=== PATIENT | female | born 1930 | race Hispanic/Latino ===

== ENCOUNTER 2018-09-21 18:53 | Inpatient (IN) | payer MEDICARE, OTHER ==
[~2018-09-21] VITALS: Ht 142.2 cm; Wt 47.2 kg
[~2018-09-21 18:53] MED LIST: ALENDRONATE SOD70 MG PO; ASPIR 8181 MG PO; CALCIUM PO; DULOXETINE PO; FERROUS SULFATE PO; GABAPENTIN PO; HYDRALAZINE PO; ISOSORBIDE PO; LEVOTHYROXINE PO; LOSARTAN PO; LOSARTAN-HCTZ1 EACH PO; OXYBUTYNIN PO; PANTOPRAZOLE PO; PRAVASTATIN PO; VITAMIN B-12 PO
[2018-09-21] MEDS ORDERED: ONDANSETRON HCL INJ 2MG/ML 2ML 2 MG/ML VIAL IV STA (19:16)
--- NOTE | 2018-09-21 21:40 | Diagnostic Imaging Report ---
EXAM: CT Abdomen and Pelvis WITH contrast INDICATION: Abdominal pain. ^[id number] ^2039 COMPARISON: None. TECHNIQUE: Abdomen and pelvis were scanned utilizing a multidetector helical scanner from the lung base to the pubic symphysis after administration of IV contrast. Coronal and sagittal reformations were obtained. Dose modulation, iterative reconstruction, and/or weight based adjustment of the mA/kV was utilized to reduce the radiation dose to as low as reasonably achievable. Routine protocol was performed. Scan was performed when during portal venous phase. IV CONTRAST: 100 mL of Isovue 370 ORAL CONTRAST: Water COMPLICATIONS: None RADIATION DOSE: Total DLP: 942.68 mGy*cm Estimated effective dose: (DLP x 0.015 x size factor) mSv CTDIvol has been reviewed. It is below the limits set by the Radiation Protocol Committee (RPC). FINDINGS: LINES and TUBES: Left subcutaneous lower back spine stimulator device in place LOWER THORAX: Mild bibasilar atelectasis. HEPATOBILIARY: No focal hepatic lesions. Common bile duct dilatation, likely due to reservoir effect. GALLBLADDER: Surgically absent. SPLEEN: No splenomegaly. Punctate calcified granuloma. PANCREAS: No focal masses or ductal dilatation. ADRENALS: No adrenal nodules KIDNEYS/URETERS: Kidneys enhance symmetrically. No hydronephrosis. No renal mass. Subcentimeter hypodensities are too small to characterize. No stones. GI TRACT: Multiple air-fluid levels throughout the abdomen as well as dilated air and fluid-filled small bowel loops. There are also some collapsed loops in the mid and lower abdomen. Colonic diverticulosis. Fluid within distal esophagus, suggestive of gastroesophageal reflux. PELVIC ORGANS/BLADDER: Unremarkable. LYMPH NODES: No lymphadenopathy. VESSELS: Markedly tortuous abdominal aorta with mild atherosclerotic disease. PERITONEUM / RETROPERITONEUM: No free air. Trace ascites. BONES: Generalized demineralization. Thoracolumbar scoliosis with multilevel advanced degenerative changes. SOFT TISSUES: Small fat-containing ventral hernias. IMPRESSION: 1. Findings concerning for at least partial small bowel obstruction. Signed by: Dr. Lowell Scott MD on 09/21/2018 9:36 PM
[2018-09-21] MEDS ORDERED: MORPHINE SULFATE 2 MG/ML SYR 1ML IV STA (21:43)
[2018-09-21] MEDS ORDERED: SODIUM CHLORIDE 0.9% 1000ML 1,000 ML IV SCH (21:47)
--- OUTSIDE RECORDS SUMMARY | 2018-09-21 22:34 | XMS REPORT ---
Author Author [facility] Address Unknown Phone Unavailable Care Team Providers Care Bogger Operator Name Role Phone Lorene OLEA Unavailable Unavailable Problems This patient has no known problems. Allergies, Adverse Reactions, Alerts This patient has no known allergies or adverse reactions. Medications This patient has no known medications. Results Test Description Test Time Test Comments Text Results Atomic Results Result Comments CT ABD/PEL WITH CONTRAST-HOPD 2018-09-21 21:21:00 [place] [address] Patient Name: AIRAM RANDLE MR #: [id number] : 1930 Age/Sex: 88/F Req #: [id number] Adm Physician: Ordered by: GERONIMO OLEA MD Report #: [id number] Location: [facility] Room/Bed: Procedure: [id number] HOPD/CT ABD/PEL WITH CONTRAST-HOPD Exam Date: 09/21/18 Exam Time: 2039 REPORT STATUS: Signed EXAM: CT Abdomen and Pelvis WITH contrast INDICATION: Abdominal pain. [id number] COMPARISON: None. TECHNIQUE: Abdomen and pelvis were scanned utilizing a multidetector helical scanner from the lung base to the pubic symphysis after administration of IV contrast. Coronal and sagittal reformations were obtained. Dose modulation, iterative reconstruction, and/or weight based adjustment of the mA/kV was utilized to reduce the radiation dose to as low as reasonably achievable. Routine protocol was performed. Scan was performed when during portal venous phase. IV CONTRAST: 100 mL of Isovue 370 ORAL CONTRAST: Water COMPLICATIONS: None RADIATION DOSE: Total DLP: 942.68 mGy*cm Estimated effective dose: (DLP x 0.015 x size factor) mSv CTDIvol has been reviewed. It is below the limits set by the Radiation Protocol Committee (RPC). FINDINGS: LINES and TUBES: Left subcutaneous lower back spine stimulator device in place LOWER THORAX: Mild bibasilar atelectasis. HEPATOBILIARY: No focal hepatic lesions. Common bile duct dilatation, likely due to reservoir effect. GALLBLADDER: Surgically absent. SPLEEN: No splenomegaly. Punctate calcified granuloma. PANCREAS: No focal masses or ductal dilatation. ADRENALS: No adrenal nodules KIDNEYS/URETERS: Kidneys enhance symmetrically. No hydronephr osis. No renal mass. Subcentimeter hypodensities are too small to characterize. No stones. GI TRACT: Multiple air-fluid levels throughout the abdomen as well as dilated air and fluid-filled small bowel loops. There are also some collapsed loops in the mid and lower abdomen. Colonic diverticulosis. Fluid within distal esophagus, suggestive of gastroesophageal reflux. PELVIC ORGANS/BLADDER: Unremarkable. LYMPH NODES: No lymphadenopathy. VESSELS: Markedly tortuous abdominal aorta with mild atherosclerotic disease. PERITONEUM / RETROPERITONEUM: No free air. Trace ascites. BONES: Generalized demineralization. Thoracolumbar scoliosis with multilevel advanced degenerative changes. SOFT TISSUES: Small fat- containing ventral hernias. IMPRESSION: 1. Findings concerning for at least partial small bowel obstruction. Signed by: Dr. Lowell Dupont MD on 09/21/2018 9:36 PM Dictated By: LOWELL DUPONT MD 35 Transcribed By: INGRID on 09/21/182135 COPY TO: GERONIMO OLEA MD
--- NOTE | 2018-09-21 23:01 | NUR ---
Attempted to insert NGT twice into right and left nostril and was met with much resistance possibly in turbinate areas, unable to advance, pt tolerated attempts with moderate discomfort.
[2018-09-21 23:30] VITALS: BP 168/60
[2018-09-22] VITALS (10 sets, daily range): BP systolic 145–179; BP diastolic 60–75
--- NOTE | 2018-09-22 | NUR ---
Attempted to insert NGT x 1, unable to advance due to resistance. Attempted x 2 at FRER per report from Jony HORN. Will notify in AM that NGT was unable to be obtained. Addendum: 09/22/18 at 0244 by Kasandra Cabral RN Pt states she has had sinus surgery in the past, does not remember exact procedure.
--- NOTE | 2018-09-22 01:42 | NUR ---
Left message on Dr. Shine's voicemail regarding orders for pain/nausea medicine per pt request.
[2018-09-22] MEDS: KETOROLAC TROMETHAMINE 30 MG/ML VIAL IV PRN (06:35)
[2018-09-22 06:46] LABS: BASOPHILS % 0.3 % (0.0-1.0); EOSINOPHILS % 0.1 % (0.0-6.0); HEMATOCRIT 31.2 % (34.2-44.1); HEMOGLOBIN 10.2 g/dL (12.0-16.0); LYMPHOCYTES % 13.2 % (18.0-39.1); MEAN CORPUSCULAR HEMOGLOBIN 28.3 pg (28-32); MEAN CORPUSCULAR HGB CONC 32.7 g/dL (31-35); MEAN CORPUSCULAR VOLUME 86.7 fL (81-99); MONOCYTES # (AUTO) 0.5 (0.2-0.8); MONOCYTES % 6.4 % (4.4-11.3); NEUTROPHILS # (AUTO) 5.8 (2.1-6.9); NEUTROPHILS % 79.7 % (38.7-80.0); PLATELET COUNT 184 x10e3/uL (140-360); RED CELL DISTRIBUTION WIDTH 13.8 % (11.7-14.4)
[2018-09-22 07:00] LABS: ANION GAP 11.5 mmol/L (8-16); BLOOD UREA NITROGEN 10 mg/dL (7-26); BUN/CREATININE RATIO 19 (6-25); CARBON DIOXIDE 26 mmol/L (22-29); CHLORIDE 98 mmol/L (98-107); CREATININE, SERUM 0.54 mg/dL (0.57-1.11); EST GLOMERULAR FILTRATION RATE > 60 ML/MIN (60-); GLUCOSE 113 mg/dL (74-118); POTASSIUM 3.5 mmol/L (3.5-5.1); SODIUM 132 mmol/L (136-145)
--- NOTE | 2018-09-22 08:26 | Diagnostic Imaging Report ---
Exam: KUB- 1 view Clinical History: Abdominal distension. Comparison: CT Abdomen/Pelvis 09/21/2018. Findings: There are mildly dilated small bowel loops, measuring up to 3.2 cm. Some air is seen within a decompressed colon. Surgical clips project over the left abdomen. There is a spinal stimulator device projecting over the left lower quadrant. No acute osseous abnormality. S-shaped scoliosis of the thoracolumbar spine with associated extensive degenerative changes. Impression: Findings of persistent partial small bowel obstruction. Signed by: Dr. Yogesh Parmar MD on 09/22/2018 8:22 AM
[2018-09-22] MEDS ORDERED: BISACODYL 10 MG SUPP PR NR (09:15)
[2018-09-22] MEDS: METRONIDAZOLE 500MG/NS 100ML 100 ML IV SCH ×2 (13:10→21:19)
[2018-09-22] MEDS: CEFTRIAXONE SOD 1 GM/NS 50 ML 50 ML IV SCH (13:10)
[2018-09-22] MEDS: PANTOPRAZOLE 40 MG 10ML VIAL IV SCH (13:10)
[2018-09-22] MEDS: SOD CHL 0.45%/POT CHL 20MEQ 1,000 ML IV SCH (13:10)
[2018-09-22] MEDS: ENOXAPARIN 30 MG/0.3 ML SYR SC SCH (13:11)
[2018-09-22] MEDS: MORPHINE SULFATE INJ 4 MG/ML INJ 1ML IV PRN ×2 (13:38→16:30)
[2018-09-22] MEDS: ONDANSETRON HCL INJ 2MG/ML 2ML 2 MG/ML VIAL IV PRN (13:38)
--- NOTE | 2018-09-22 18:52 | NUR ---
montilla placed with urine output >300ml. ngt placed as pt increased abdominal distention, nausea and pain. patient feeling much better after ngt placed and contents 250ml out with suction.
--- NOTE | 2018-09-22 19:21 | NUR ---
Received change of shift report from AM nurse. Rounds completed.
--- NOTE | 2018-09-22 20:09 | History and Physical ---
PRIMARY CARE PHYSICIAN: Rosalba De La Garza. CHIEF COMPLAINT: Small bowel obstruction. HISTORY OF PRESENT ILLNESS: The patient is an 88-year-old female, who came in with small bowel obstruction. NG tube was unable to be placed because she has had bilateral sinus surgery previously. The patient's abdomen is distended. She is having pain. Currently, the patient is on bowel rest. Repeated KUB this morning does show that she has a partial small bowel obstruction. PAST SURGICAL HISTORY: A small section of small bowel resection years ago. Ventral abdominal hernia repair. Complete hysterectomy. Cholecystectomy and appendectomy. SOCIAL HISTORY: Patient lives with her family with very well support. No smoking. No recreational drugs. ALLERGIES: NO KNOWN ALLERGIES. HOME MEDICATIONS: Patient is on alendronate, aspirin, losartan, HCTZ, calcium, fluoxetine, ferrous sulfate, gabapentin, isosorbide, levothyroxine, oxybutynin, Protonix, pravastatin. PHYSICAL EXAMINATION: VITAL SIGNS: Temperature is 98, blood pressure 151/62, pulse rate 70, respirations 18. GENERAL: The patient is not in acute distress. She is awake. HEENT: Normocephalic, atraumatic. Anicteric. NECK: Supple grossly. PULMONARY: Diminished breath sounds. CARDIOVASCULAR: S1 and S2. Regular rate and rhythm. ABDOMEN: Distended. Diminished bowel sounds. Tenderness. No guarding. EXTREMITIES: No cyanosis or edema. NEUROLOGIC: No focal deficit. LABORATORY DATA: Sodium is 132, potassium 3.5, chloride 98, bicarb 26, BUN 10, creatinine 0.5, glucose 113. WBC is 7.3, hemoglobin 10.2, hematocrit 31.2, and platelets are 184. CT scan and KUB showed small bowel obstruction partially. IMPRESSION: 1. Partial small bowel obstruction. 2. Electrolyte disorder. 3. Hypertensive urgency. PLAN: Adjust patient medication. IV fluid with potassium replacement. Nothing by mouth for now. Repeat KUB in the morning. We will treat the patient symptomatically. PT, OT. Ambulate. MD JACQUE Morfin/SHRUTHI /[id number]
--- NOTE | 2018-09-22 20:28 | Consultation ---
DATE OF CONSULTATION: September 22, 2018 CHIEF COMPLAINT: Abdominal pain, vomiting. HISTORY OF PRESENT ILLNESS: The patient is an 88-year-old female with 1-day history of periumbilical abdominal pain and repeat vomiting without hematemesis. She denies fever, chills, or diarrhea. She has passed some gas early today. PAST MEDICAL HISTORY: Significant for hypertension, hypothyroidism. PAST SURGICAL HISTORY: Positive for umbilical hernia repair, cholecystectomy, small bowel resection from bowel obstruction. ALLERGIES: SHE HAS NO DRUG ALLERGIES. SOCIAL HABIT: She does not smoke or drink alcohol. REVIEW OF SYSTEMS: No chest pain, shortness of breath, or cough. PHYSICAL EXAMINATION VITAL SIGNS: Stable, afebrile. GENERAL: She is awake, alert, in mild discomfort. HEENT: Sclerae are nonicteric. NECK: Supple. LUNGS: Clear. HEART: Regular rate and rhythm. ABDOMEN: Moderately distended with some guarding in the epigastric supraumbilical region without rebound. EXTREMITIES: Without cyanosis or edema. LABS: White cell count 7, hemoglobin of 10. Creatinine of 0.5. CT scan showed partial small bowel obstruction. ASSESSMENT: Intestinal obstruction, likely secondary to adhesion. PLAN: NG tube has been placed. We will follow patient with abdominal x-ray and serial exam. Job#: [id number] RIKA
--- NOTE | 2018-09-23 | NUR ---
Patient repositioned in bed q 2 hours and prn.
[2018-09-23] MEDS: SOD CHL 0.45%/POT CHL 20MEQ 1,000 ML IV SCH ×2 (03:25→07:30)
[2018-09-23 03:48] VITALS: BP 165/86
[2018-09-23] MEDS: ONDANSETRON HCL INJ 2MG/ML 2ML 2 MG/ML VIAL IV PRN ×2 (05:00→06:20)
--- NOTE | 2018-09-23 05:00 | NUR ---
Patient c/o abd pain. Given pain meds as ordered by MD. Patient also received nausea meds also.
[2018-09-23] MEDS: MORPHINE SULFATE INJ 4 MG/ML INJ 1ML IV PRN (05:30)
[2018-09-23 05:34] LABS: RED CELL DISTRIBUTION WIDTH 13.6 % (11.7-14.4)
[2018-09-23 05:59] LABS: ANION GAP 12.2 mmol/L (8-16); BLOOD UREA NITROGEN 9 mg/dL (7-26); BUN/CREATININE RATIO 18 (6-25); CALCIUM 8.4 mg/dL (8.4-10.2); CARBON DIOXIDE 23 mmol/L (22-29); CHLORIDE 95 mmol/L (98-107); CREATININE, SERUM 0.51 mg/dL (0.57-1.11); EST GLOMERULAR FILTRATION RATE > 60 ML/MIN (60-); GLUCOSE 100 mg/dL (74-118); POTASSIUM 3.2 mmol/L (3.5-5.1); SODIUM 127 mmol/L (136-145)
[2018-09-23] MEDS: METRONIDAZOLE 500MG/NS 100ML 100 ML IV SCH ×3 (06:00→21:24)
--- NOTE | 2018-09-23 06:26 | Diagnostic Imaging Report ---
EXAM: Abdomen 1 View INDICATION: ^SBO ^[id number] ^0545 COMPARISON: KUB dated 09/22/2018 FINDINGS: Tip of a tube overlying right upper abdomen, could represent a nasogastric tube. Decreased gaseous distention of bowel loops when compared to prior x-ray. No definite signs of pneumoperitoneum. Stable left posterior back spine stimulator device. Advanced multilevel degenerative changes of spine. Surgical clips overlying left lower abdomen and upper pelvis. IMPRESSION: Decreased gaseous distention of bowel loops when compared to prior x-ray, suggestive of improved obstruction. Signed by: Dr. Lowell Scott MD on 09/23/2018 6:22 AM
[2018-09-23 06:28] LABS: FOLATE 15.3 ng/mL (7.0-15.4)
[2018-09-23 06:35] LABS: MAGNESIUM 1.8 MG/DL (1.3-2.1); PHOSPHORUS 2.7 MG/DL (2.3-4.7)
[2018-09-23 06:50] LABS: BASOPHILS % 0.1 % (0.0-1.0); HEMATOCRIT 34.9 % (34.2-44.1); LYMPHOCYTES # (AUTO) 0.6 (1.0-3.2); LYMPHOCYTES % 8.3 % (18.0-39.1); MEAN CORPUSCULAR HEMOGLOBIN 28.9 pg (28-32); MEAN CORPUSCULAR HGB CONC 33.8 g/dL (31-35); MEAN CORPUSCULAR VOLUME 85.5 fL (81-99); MONOCYTES # (AUTO) 0.5 (0.2-0.8); NEUTROPHILS # (AUTO) 6.3 (2.1-6.9); NEUTROPHILS % 84.5 % (38.7-80.0); PLATELET COUNT 217 x10e3/uL (140-360); RED BLOOD COUNT 4.08 x10e6/uL (3.6-5.1)
[2018-09-23 06:54] LABS: THYROID STIMULATING HORMONE 3.819 uIU/mL (0.350-4.940)
[2018-09-23 06:59] LABS: HEMOGLOBIN 11.8 g/dL (12.0-16.0)
[2018-09-23 07:30] VITALS: BP 166/80
[2018-09-23] MEDS: PANTOPRAZOLE 40 MG 10ML VIAL IV SCH (07:34)
[2018-09-23 07:43] VITALS: BP 166/80
--- NOTE | 2018-09-23 10:04 | NUR ---
EDUCATED ABOUT IMM, SIGNED, FILED IN CHART, WITH COPY LEFT WITH FAMILY AT BEDSIDE.
[2018-09-23] MEDS: CEFTRIAXONE SOD 1 GM/NS 50 ML 50 ML IV SCH (11:21)
[2018-09-23 12:00] VITALS: BP 178/76
[2018-09-23] MEDS ORDERED: CYANOCOBALAMIN INJ 1,000 MCG/ML VIAL IM ONE (14:30)
[2018-09-23] MEDS: KCL 40MEQ/0.9% SOD CHL 1,000 ML IV SCH (14:57)
[2018-09-23] MEDS: CLONIDINE HCL 0.2 MG/24 HR 1 EA PATCH TOP SCH (14:57)
[2018-09-23 16:00] VITALS: BP 156/72
[2018-09-23] MEDS: ENOXAPARIN 30 MG/0.3 ML SYR SC SCH (16:36)
--- NOTE | 2018-09-23 19:00 | NUR ---
RECEIVED REPORT FROM DAY NURSE. PATIENT IS RESTING COMFORTABLY IN BED. BED IS IN LOWEST POSITION AND CALL LIGHT IS WITHIN REACH. WILL CONTINUE TO MONITOR PATIENT.
[2018-09-23 20:00] VITALS: BP 186/81
--- NOTE | 2018-09-23 20:00 | NUR ---
PATIENT'S BLOOD PRESSURE IS ELEVATED AT 186/81. PATIENT WILL BE MEDICATED WITH PRN HIGH BLOOD PRESSURE MEDICINE. WILL CONTINUE TO MONITOR PATIENT.
[2018-09-23] MEDS: HYDRALAZINE HCL 20 MG/ML VIAL IV PRN (21:24)
--- NOTE | 2018-09-23 22:48 | NUR ---
PATIENT'S BLOOD PRESSURE HAS BEEN REASSESSED AND FOUND TO BE 151/74. PATIENT IS RESTING COMFORTABLY IN BED. WILL CONTINUE TO MONITOR PATIENT.
--- NOTE | 2018-09-23 22:49 | NUR ---
PATIENT HAS BEEN REPOSITIONED ONTO HER BACK TO HELP PREVENT SKIN BREAKDOWN.
[2018-09-24] VITALS: BP 159/71
--- NOTE | 2018-09-24 | NUR ---
patient wants to be left on the left side for now. patient states she will let contract technical writer know when she wants to be turned. will continue to monitor patient.
[2018-09-24 04:00] VITALS: BP 147/61
[2018-09-24 05:14] LABS: BASOPHILS % 0.5 % (0.0-1.0); EOSINOPHILS % 0.3 % (0.0-6.0); HEMATOCRIT 36.1 % (34.2-44.1); HEMOGLOBIN 12.1 g/dL (12.0-16.0); LYMPHOCYTES % 17.5 % (18.0-39.1); MEAN CORPUSCULAR HEMOGLOBIN 29.4 pg (28-32); MEAN CORPUSCULAR HGB CONC 33.5 g/dL (31-35); MEAN CORPUSCULAR VOLUME 87.6 fL (81-99); MONOCYTES # (AUTO) 0.6 (0.2-0.8); MONOCYTES % 10.8 % (4.4-11.3); NEUTROPHILS # (AUTO) 4.2 (2.1-6.9); NEUTROPHILS % 70.7 % (38.7-80.0); PLATELET COUNT 256 x10e3/uL (140-360); RED BLOOD COUNT 4.12 x10e6/uL (3.6-5.1)
[2018-09-24] MEDS: KCL 40MEQ/0.9% SOD CHL 1,000 ML IV SCH ×3 (05:22→21:57)
[2018-09-24] MEDS: METRONIDAZOLE 500MG/NS 100ML 100 ML IV SCH ×3 (05:22→21:57)
[2018-09-24 05:42] LABS: ANION GAP 15.9 mmol/L (8-16); BLOOD UREA NITROGEN 14 mg/dL (7-26); BUN/CREATININE RATIO 26 (6-25); CALCIUM 8.1 mg/dL (8.4-10.2); CARBON DIOXIDE 18 mmol/L (22-29); CHLORIDE 104 mmol/L (98-107); CREATININE, SERUM 0.53 mg/dL (0.57-1.11); EST GLOMERULAR FILTRATION RATE > 60 ML/MIN (60-); POTASSIUM 3.9 mmol/L (3.5-5.1); SODIUM 134 mmol/L (136-145)
[2018-09-24 05:52] LABS: GLUCOSE 58 mg/dL (74-118)
[2018-09-24] MEDS ORDERED: DEXTROSE 50% SYRINGE 50 ML IV STA (05:59)
--- NOTE | 2018-09-24 06:00 | NUR ---
received critical lab from lab this morning. patients sugar is 58. MD notified, received new orders. Will continue to monitor patient.
[2018-09-24 06:03] LABS: MAGNESIUM 1.8 MG/DL (1.3-2.1); PHOSPHORUS 2.2 MG/DL (2.3-4.7)
[2018-09-24] MEDS ORDERED: DEXTROSE 50% SYRINGE 50 ML IV SCH (06:15)
--- NOTE | 2018-09-24 06:32 | NUR ---
per patient request, patient has been checked to see if she is dirty and needs a diaper change. patient's diaper is clean, and dry. A change is not required at this moment.
--- NOTE | 2018-09-24 06:53 | NUR ---
report given to day nurse. patient is resting comfortably in bed. bed is in lowest position and call johnson is within reach.
[2018-09-24 08:00] VITALS: BP 159/70
[2018-09-24] MEDS: PANTOPRAZOLE 40 MG 10ML VIAL IV SCH (08:07)
[2018-09-24 08:34] VITALS: BP 159/70
--- NOTE | 2018-09-24 09:42 | Diagnostic Imaging Report ---
Exam: Abdominal film Clinical History: Obstruction Comparison: 09/23/2018 DISCUSSION: Enteric tube and sacral stimulator device are unchanged in appearance/position. Multiple left lower abdominal-pelvic surgical clips. Degree of gaseous distention is unchanged relative to 09/23/2018. No mass effect or organomegaly. 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 IMPRESSION: Stable mild gaseous distention of multiple bowel loops relative to 09/23/2018. Signed by: Dr. Nigel De La Rosa M.D. on 09/24/2018 9:38 AM
--- NOTE | 2018-09-24 10:45 | NUR ---
PT SITTING IN CHAIR FAMILY AT BEDSIDE
[2018-09-24 12:00] VITALS: BP 144/86
--- NOTE | 2018-09-24 12:03 | NUR ---
CHUY CALLED DR. MICHELLE FOR DISCHARGE PLANNING ASSISTANCE. PATIENT WITH DECREASED MOBILITY, INCREASED WEAKNESS AND DECREASED BALANCED. PHYSICAL THERAPY RECOMMENDED [facility]. STATES IF PATIENT IS OKAY WITH SNF WE CAN BEGIN AUTH. IF PATIENT DECLINES THEN SET UP HOME WITH HOME [facility] SN & PT EVAL AND TREAT SERVICES. ROSS VERA NOTIFIED.
[2018-09-24] MEDS: CEFTRIAXONE SOD 1 GM/NS 50 ML 50 ML IV SCH (12:20)
--- NOTE | 2018-09-24 15:42 | NUR ---
RECEIVED ORDER FOR SNF EVAL. MET W THE PT AT THE BEDSIDE. STATES HER SISTER WENT TO THE MEDICAL RESORT ON YESTERDAY AND WOULD LIKE TO GO THERE. VERIFIED W PT'S INSURANCE MED [facility] WAS NOT IN NETWORK. PROVIDED PT NEW LIST OF SNF'S; [facility] AND [facility], ALL IN NETWORK. CALL WAS MADE TO THE PT'S DTR; PIERRE, @ [phone]. PIERRE STATES [facility] IS [address] [place] [address] THE PT AGREED TO [facility]. REFERRAL WAS SENT TO [facility] @ OFF: [phone] / FAX: [phone]. VERIFIED W REPRODUCTIVE SURGEON THE DON; ERIK WILL REVIEW THE CLINICAL. Addendum: 09/24/18 at 1548 by Arabella Lin CM CHOICE LETTER WAS PROVIDED AND SIGNED BY PT. COPY TO PT AND COPY TO CHART. CHUY LEFT BUSINESS CARD AT THE BEDSIDE.
--- NOTE | 2018-09-24 16:00 | NUR ---
PT TRANSFERRED TO ROOM 213.
--- NOTE | 2018-09-24 16:15 | NUR ---
pt arrived to floor resp even and unlabored at this time no distress noted, pt oriented to room and call light.
[2018-09-24] MEDS: ENOXAPARIN 30 MG/0.3 ML SYR SC SCH (17:09)
--- NOTE | 2018-09-24 19:25 | NUR ---
report given to oncoming nurse.
--- NOTE | 2018-09-24 19:30 | NUR ---
PATIENT RECEIVED. PATIENT IS RESTING IN BED, AAOX3. RESP EVEN AND UNLABORED. NO ACUTE DISTRESS NOTED. LEFT NARE NG TUBE NOTED, CONNECT TO LIWS NOTED. IV FLUID INFUSING. LILLY IN PLACE. FAMILY AT BED SIDE. CALL LIGHT WITHIN REACH. BED LOW/LOCKED. CONTINUE TO MONITOR CLOSELY
[2018-09-24 20:00] VITALS: BP 177/74
[2018-09-24] MEDS: KETOROLAC TROMETHAMINE 30 MG/ML VIAL IV PRN (22:45)
[2018-09-24] MEDS: HYDRALAZINE HCL 20 MG/ML VIAL IV PRN (22:45)
[2018-09-25] VITALS (7 sets, daily range): BP systolic 127–157; BP diastolic 58–76
[2018-09-25] MEDS: METRONIDAZOLE 500MG/NS 100ML 100 ML IV SCH ×3 (05:00→21:31)
--- NOTE | 2018-09-25 07:30 | NUR ---
RCD PT BED PT IS ALERT AND ORIENTED PT RESTING ON BED NO SIGNS OF ANY DISTRESS NOTED PT ON NG TUBE WITH LOW INTERMITTENT SUCTION IV PATENT AND RUNNING 100ML FAMILY AT BED SIDE BED LOW AND LOCKED CALL LIGHT IN REACH
[2018-09-25] MEDS: PANTOPRAZOLE 40 MG 10ML VIAL IV SCH (09:00)
--- NOTE | 2018-09-25 09:10 | NUR ---
CALL RECEIVED FROM [facility]. STATES THEY ARE OUT OF NETWORK. INFO GIVEN TO HAI TEE. SHE WILL SPEAK W THE PT AND DTR.
[2018-09-25] MEDS: KCL 40MEQ/0.9% SOD CHL 1,000 ML IV SCH ×2 (10:00→16:17)
[2018-09-25] MEDS: CEFTRIAXONE SOD 1 GM/NS 50 ML 50 ML IV SCH (11:30)
--- NOTE | 2018-09-25 15:47 | NUR ---
SPOKE WITH PATIENT AND DAUGHTER GAVE CHOICES IN NETWORK, THEY CHOOSE [facility], FAXED CLINICALS AND FILED CHOICE LETTER IN CHART.
[2018-09-25] MEDS: ENOXAPARIN 30 MG/0.3 ML SYR SC SCH (16:17)
--- NOTE | 2018-09-25 19:00 | NUR ---
PT RESTING ON BED BED SIDE REPORT GIVEN TO ONCOMING NURSE
--- NOTE | 2018-09-25 19:44 | Diagnostic Imaging Report ---
EXAM: Abdomen 1 Views INDICATION: ^SMALL BOWEL OBSTRUCTION ^[id number] ^1746 ^Y COMPARISON: None FINDINGS: Lines/tubes: Partially visualized NG/T2 with tip overlying the distal gastric body. Sacral neurostimulator device in the left pelvis with lead overlying the sacrum slightly toward the left. Large amount of of stool in the colon. No dilated loops of small bowel. No renal calculi. No abnormal soft tissue masses. Advanced degenerative changes in the lumbar spine and pelvis. IMPRESSION: Stable bowel gas pattern without dilatation or air fluid levels. Signed by: Dr. Doreen Everett M.D. on 09/25/2018 7:40 PM
[2018-09-25] MEDS: KETOROLAC TROMETHAMINE 30 MG/ML VIAL IV PRN (21:31)
[2018-09-26] VITALS (8 sets, daily range): BP systolic 130–165; BP diastolic 53–74
[2018-09-26] MEDS: KCL 40MEQ/0.9% SOD CHL 1,000 ML IV SCH ×3 (02:30→22:30)
[2018-09-26] MEDS: METRONIDAZOLE 500MG/NS 100ML 100 ML IV SCH ×3 (06:07→21:57)
--- NOTE | 2018-09-26 07:00 | NUR ---
RCD PT BED PT IS ALERT AND ORIENTED PT RESTING ON BED NO SIGNS OF ANY DISTRESS NOTED PT ON NG TUBE WITH LOW INTERMITTENT SUCTION IV PATENT AND RUNNING 100ML BED LOW AND LOCKED CALL LIGHT IN REACH
--- NOTE | 2018-09-26 07:09 | NUR ---
REPORT GIVEN TO ONCOMING NURSE,WALKING ROUNDS MADE.PT RESTING IN BED WITH NO S/S OF DISTRESS.
--- NOTE | 2018-09-26 08:30 | NUR ---
ENEMA GIVEN THE PT IS NOT ABLE TO HOLD THE FLUID PAGED TO DR STEWART TO NOTIFY THAT TALKED CATHYLINE THE OR NURSE SHE SAID DR STEWART IS ON SURGERY SHE TALKED HIM HE SAID HE COMING TO SEE THE PT AFTER SURGERY
[2018-09-26] MEDS: PANTOPRAZOLE 40 MG 10ML VIAL IV SCH (09:00)
[2018-09-26] MEDS: CEFTRIAXONE SOD 1 GM/NS 50 ML 50 ML IV SCH (11:30)
[2018-09-26] MEDS: ENOXAPARIN 30 MG/0.3 ML SYR SC SCH (16:49)
--- NOTE | 2018-09-26 18:12 | NUR ---
Nutrition Intervention Note RD Recommendation(s) for Physician: -Rec advancing to GI soft diet as medically appropriate -Rec Ensure Clear BID when advance to clear liquid -If PO is not feasible within the next 48hr, consider PN Plan of Care: RD following, monitoring for tolerance and adequacy Nutrition reason for involvement: NPO x [address] Assessment 09/26- 88yo F, who was admitted for abdominal pain. Pt was discussed during AM rounds. No surgical intervention for SBO. NGT to suction. IVF and IV abx present. Abd X-ray showed large amount of stool in colon; enema has been ordered. RD visited pt for NPO x 5 days. Pt appeared comfortable with no complains of nausea or vomiting. No BM after enema was given. Pt reported hx of chronic constipation. No recent weight loss OFFICER LIEUTENANT. Will continue to monitor and follow. Principal Problems/Diagnoses: SBO PMH: hypertension, hypothyroidism GI: LBM 09/22, abdomen soft, round, non-tender Skin: no pressure wound noted Labs: (09/26) Na 134 L, creatinine 0.53 L, Glucose 58 L, Ca 8.1 L Meds: Lovenox, KCl, protonix Ht: 54in Wt: 111.38lb BMI: 26.9kg/m2 IBW: 70lbs Malnutrition Evaluation (09/26) The patient does not meet criteria for a specified degree of malnutrition at this time. Will re-evaluate at follow-up as appropriate. Energy intake: <50% of estimated energy requirements for >5 days Weight loss: Unknown Fat loss: None Muscle loss: None Supporting Evidence: Fluid accumulation: unable to evaluate Functional Status: no changes Nutrition Prescription (Diet Order): NPO Estimated Nutritional Needs: Calories: 1000 - 1250kcal(20-25kcal/kg/d) Weight used: actual BW Protein: 50 -75g (1-1.5g/kg/d) Weight used: actual BW Diet Adequacy: Not meeting calorie needs, Not meeting protein needs Diet Education Needs Assessment: Diet education indicated, but patient not appropriate for education at this time. Nutrition Care Level: mod Nutrition Diagnosis: Inadequate oral intake related to SBO as evidenced by NPO x 5 days. Goal: Patient will meet 75-100% of estimated needs by follow up Progress: Not Progressing Interventions: Texture-modified diet, Commercial beverage Monitoring/Evaluation: Total energy intake, Total protein intake, Modified diet, Liquid supplement, Weight change Signed: Mamta Huerta, MS, RD, LD
--- NOTE | 2018-09-26 19:21 | NUR ---
PT RESTING ON BED BED SIDE REPORT GIVEN TO ONCOMING NURSE
[2018-09-26] MEDS: KETOROLAC TROMETHAMINE 30 MG/ML VIAL IV PRN (20:31)
[2018-09-27] VITALS (8 sets, daily range): BP systolic 138–188; BP diastolic 60–78
[2018-09-27] MEDS: METRONIDAZOLE 500MG/NS 100ML 100 ML IV SCH ×4 (06:05→21:42)
--- NOTE | 2018-09-27 07:05 | NUR ---
Received patient mid fowlers position, side rails upx2, call light within reach, bed alarm on. Resting with eyes closed. Arousable to verbal stimuli. Respirations even and unlabored. Left nare NG tube on intermittent suction draining green drainage. Will continue to monitor.
--- NOTE | 2018-09-27 07:18 | NUR ---
REPORT GIVEN TO ONCOMING NURSE,WALKING ROUNDS MADE.PT RESTING IN BED WITH NO S/S OF DISTRESS.
[2018-09-27] MEDS: PANTOPRAZOLE 40 MG 10ML VIAL IV SCH (08:37)
[2018-09-27] MEDS: CEFTRIAXONE SOD 1 GM/NS 50 ML 50 ML IV SCH (10:30)
[2018-09-27] MEDS: ONDANSETRON HCL INJ 2MG/ML 2ML 2 MG/ML VIAL IV PRN (10:30)
[2018-09-27] MEDS: KCL 40MEQ/0.9% SOD CHL 1,000 ML IV SCH (12:16)
[2018-09-27] MEDS: DEXTROSE 5%/0.45% SOD CHL 1,000 ML IV SCH (15:22)
[2018-09-27] MEDS: ENOXAPARIN 30 MG/0.3 ML SYR SC SCH (15:22)
--- NOTE | 2018-09-27 15:32 | Diagnostic Imaging Report ---
EXAM: ABDOMEN-1VIEW (KUB) DATE: 09/27/2018 2:25 PM INDICATION: Small bowel obstruction COMPARISON: KUB, 09/25/2018 FINDINGS: Supine view of the abdomen shows mild distention of a bowel loop in the lower midline abdomen. There is a relative paucity of gas in the colon. NG tube extends to the gastric antrum. Electronic generator with apparent InterStim catheter extends into the left pelvis. Again noted is extensive degenerative change in the spine. There are surgical clips in the left lower abdomen. IMPRESSION: 1. Mild distention of small bowel loops with air, with relative paucity of gas in the colon. Findings suggest ileus or low-grade partial small bowel obstruction, slightly increased compared to previous exam. 2. Stable position of NG tube extending to the gastric antrum. Signed by: Dr. Cyrus Toussaint M.D. on 09/27/2018 3:28 PM
--- NOTE | 2018-09-27 15:40 | NUR ---
Paged to notify of consult and KUB results. Per poultice machine operator distribution analyst.
--- NOTE | 2018-09-27 16:00 | NUR ---
aware of KUB results. No new orders. States " will be seeing patient today"
[2018-09-27 16:38] LABS: BASOPHILS % 0.5 % (0.0-1.0); EOSINOPHILS # (AUTO) 0.1 (0.0-0.4); EOSINOPHILS % 1.6 % (0.0-6.0); HEMATOCRIT 32.6 % (34.2-44.1); HEMOGLOBIN 10.1 g/dL (12.0-16.0); LYMPHOCYTES # (AUTO) 0.5 (1.0-3.2); MEAN CORPUSCULAR HEMOGLOBIN 29.1 pg (28-32); MEAN CORPUSCULAR VOLUME 93.9 fL (81-99); MONOCYTES # (AUTO) 0.3 (0.2-0.8); MONOCYTES % 7.7 % (4.4-11.3); NEUTROPHILS # (AUTO) 3.4 (2.1-6.9); NEUTROPHILS % 78.5 % (38.7-80.0); PLATELET COUNT 224 x10e3/uL (140-360); RED BLOOD COUNT 3.47 x10e6/uL (3.6-5.1); RED CELL DISTRIBUTION WIDTH 14.6 % (11.7-14.4)
--- NOTE | 2018-09-27 16:45 | NUR ---
Visit made by the Spiritual Care Department Pastoral Visitor, Eduin Becker. PV provided pastoral presence, hospitality, prayer, and supportive listening. Pastoral Visitor informed pt/family of the scope of Mathematical Engineer Services and availability. KAREN HAQUE Carpet Installation Specialist Spiritual Care Department O: [phone] Pager: [phone] ([phone] number calling from)
[2018-09-27 16:57] LABS: MAGNESIUM 1.4 MG/DL (1.3-2.1); PHOSPHORUS 2.3 MG/DL (2.3-4.7)
[2018-09-27 17:14] LABS: BLOOD UREA NITROGEN 7 mg/dL (7-26); BUN/CREATININE RATIO 13 (6-25); CALCIUM 8.4 mg/dL (8.4-10.2); CARBON DIOXIDE 10 mmol/L (22-29); CHLORIDE 115 mmol/L (98-107); CREATININE, SERUM 0.54 mg/dL (0.57-1.11); EST GLOMERULAR FILTRATION RATE > 60 ML/MIN (60-); SODIUM 140 mmol/L (136-145)
[2018-09-27 17:15] LABS: GLUCOSE 43 mg/dL (74-118)
--- NOTE | 2018-09-27 17:40 | NUR ---
Lab called critical for Glucose of 43. Finger stick done FSBG 61. notified of levels. See orders
[2018-09-27] MEDS ORDERED: DEXTROSE 50% SYRINGE 50 ML IV PRN (17:45)
--- NOTE | 2018-09-27 18:21 | NUR ---
FSBG 199.
--- NOTE | 2018-09-27 18:40 | NUR ---
Resting in bed, bed alarm on. No s/s of acute distress noted. Report to be given to oncoming nurse.
--- NOTE | 2018-09-27 19:42 | NUR ---
Patient received lying in bed. AAO x 3. No c/o pain. No signs of respiratory distress. Bed locked and in lowest position. Bed rails up x 2. Patient instructed to call for assistance when needed. Call light within reach.
[2018-09-27] MEDS: HYDRALAZINE HCL 20 MG/ML VIAL IV PRN (20:21)
[2018-09-28] MEDS: DEXTROSE 5%/0.45% SOD CHL 1,000 ML IV SCH ×3 (03:00→21:20)
[2018-09-28 06:04] LABS: BASOPHILS % 0.4 % (0.0-1.0); EOSINOPHILS # (AUTO) 0.3 (0.0-0.4); EOSINOPHILS % 5.4 % (0.0-6.0); HEMATOCRIT 29.5 % (34.2-44.1); HEMOGLOBIN 9.8 g/dL (12.0-16.0); LYMPHOCYTES # (AUTO) 0.7 (1.0-3.2); LYMPHOCYTES % 14.1 % (18.0-39.1); MEAN CORPUSCULAR HEMOGLOBIN 29.2 pg (28-32); MEAN CORPUSCULAR HGB CONC 33.2 g/dL (31-35); MEAN CORPUSCULAR VOLUME 87.8 fL (81-99); MONOCYTES # (AUTO) 0.4 (0.2-0.8); MONOCYTES % 8.7 % (4.4-11.3); NEUTROPHILS # (AUTO) 3.5 (2.1-6.9); PLATELET COUNT 218 x10e3/uL (140-360); RED BLOOD COUNT 3.36 x10e6/uL (3.6-5.1); RED CELL DISTRIBUTION WIDTH 14.2 % (11.7-14.4)
[2018-09-28 06:23] VITALS: BP 172/81
[2018-09-28 06:23] LABS: ANION GAP 10.3 mmol/L (8-16); BLOOD UREA NITROGEN < 5 mg/dL (7-26); CALCIUM 8.3 mg/dL (8.4-10.2); CARBON DIOXIDE 16 mmol/L (22-29); CHLORIDE 111 mmol/L (98-107); CREATININE, SERUM 0.49 mg/dL (0.57-1.11); EST GLOMERULAR FILTRATION RATE > 60 ML/MIN (60-); GLUCOSE 113 mg/dL (74-118); POTASSIUM 3.3 mmol/L (3.5-5.1); SODIUM 134 mmol/L (136-145)
[2018-09-28 06:25] LABS: BUN/CREATININE RATIO 10 (6-25)
[2018-09-28] MEDS: METRONIDAZOLE 500MG/NS 100ML 100 ML IV SCH (06:37)
[2018-09-28] MEDS: HYDRALAZINE HCL 20 MG/ML VIAL IV PRN (06:48)
--- NOTE | 2018-09-28 07:10 | NUR ---
pt asleep resp even and unlabored at this time no distress noted, pt arousal to name, family member at bedside, call light in reach.
[2018-09-28 07:30] VITALS: BP 140/68
[2018-09-28 08:00] VITALS: BP 140/68
[2018-09-28] MEDS: PANTOPRAZOLE 40 MG 10ML VIAL IV SCH (09:49)
[2018-09-28] MEDS ORDERED: MAGNESIUM SULFATE 2GM/50ML IV ONE (10:30)
[2018-09-28] MEDS ORDERED: BISACODYL 10 MG SUPP PR ONE (11:00)
[2018-09-28] MEDS ORDERED: MAGNESIUM SULFATE 2GM/50ML 50 ML IV ONE (11:00)
[2018-09-28] MEDS: METOCLOPRAMIDE HCL 10 MG/2ML VIAL IV SCH ×3 (11:30→21:20)
[2018-09-28 12:00] VITALS: BP 121/70
[2018-09-28] MEDS: CEFTRIAXONE SOD 1 GM/NS 50 ML 50 ML IV SCH (13:08)
[2018-09-28] MEDS: POTASSIUM CHLORIDE 10MEQ EA PO SCH ×3 (13:15→21:20)
[2018-09-28 16:00] VITALS: BP 123/73
[2018-09-28] MEDS: ENOXAPARIN 30 MG/0.3 ML SYR SC SCH (17:54)
--- NOTE | 2018-09-28 19:20 | NUR ---
Patient visited in room during nursing rounds. Patient alert and oriented x3. Daughter at bedside. Patient ambulatory with walker and standby assist prn. On IVF (d51/2NS at 100ml/hr). Patient on clear liquid diet. No distress or discomfort noted at this time. Call johnson within reach. Will monitor closely.
--- NOTE | 2018-09-28 19:24 | NUR ---
REPORT GIVEN TO ONCOMING NURSE, FOR CONTINUED CARE.
[2018-09-28 20:00] VITALS: BP 152/73
[2018-09-28] MEDS: ONDANSETRON HCL INJ 2MG/ML 2ML 2 MG/ML VIAL IV PRN (22:30)
[2018-09-29] VITALS (7 sets, daily range): BP systolic 131–156; BP diastolic 60–75
--- NOTE | 2018-09-29 00:19 | NUR ---
Attempted to call Dr. Shine to report patient having successive vomiting episodes. No answer and nurse (Kel) left voice message. Awaiting on MD call back. Will attempt to call Dr. Glynn next.
--- NOTE | 2018-09-29 00:32 | NUR ---
Spoke with Dr. Glynn over the phone regarding patient's 4 episodes of vomiting dark green vomitus. MD ordered to change diet to NPO, stat Abd x-ray and to insert NG tube if patient continues to vomit and not feel better.
--- NOTE | 2018-09-29 01:55 | Consultation ---
DATE OF CONSULTATION: 09/28/2018 Consultation Note CONSULTING PHYSICIAN: Micheal Shine MD REASON FOR CONSULTATION: Small bowel obstruction. HISTORY OF PRESENT ILLNESS: An 88-year-old very pleasant white female, who got admitted with acute onset of nausea, vomiting, and lower abdominal discomfort. In the Emergency Room, she was found to have small bowel obstruction. The patient has been seen by Surgical Service. She was treated conservatively with NG tube to ryp-aa-wousboqfdpzp wall suction. Today, she has significantly improved. NG has been removed. She is passing flatus. Therefore, she has been allowed to be on clear liquid diet. She is tolerating clear liquid diet well without any nausea or vomiting. GI is being consulted for further assistance in the medical management. On further question, the patient stated that she has had one episode of small bowel obstruction 7-8 years ago that required surgery. At that time, she has had a portion of small bowel resected. PAST MEDICAL HISTORY: Hypertension and hypothyroidism. PAST SURGICAL HISTORY: Umbilical hernia repair, cholecystectomy, and small bowel resection, secondary to bowel obstruction. FAMILY HISTORY: Noncontributory given her advanced age. SOCIAL HISTORY: No smoking, alcohol, or any illicit drug use. REVIEW OF SYSTEMS: A 12-point system reviewed, symptomatology is limited as per HPI. MEDICATIONS: Home medications include alendronate, aspirin, losartan/hydrochlorothiazide, calcium with vitamin D, duloxetine, ferrous sulphate, gabapentin, levothyroxine, oxybutynin, pantoprazole, pravastatin, and vitamin B12. Inpatient medications reviewed as per MAR. PHYSICAL EXAMINATION: VITAL SIGNS: Temperature 96.7, pulse 92-100, respirations 20, blood pressure 121/70, and oxygen saturation 97% on room air. GENERAL: Elderly with kyphosis. In no acute distress. HEENT: Oral mucosa is moist. Anicteric sclerae. CVS: S1 and S2, regular. LUNGS: Bilaterally grossly clear. ABDOMEN: Soft, without any rebound, rigidity, or guarding today. Bowel sounds present. EXTREMITIES: Warm. No leg edema. LABORATORY DATA: WBC 4.96, hemoglobin 9.8, hematocrit 29.5, MCV 87.8, and platelet count 218. Sodium 134, potassium 3.3, chloride 111, bicarb 16, BUN 5, creatinine 0.49, and glucose 113. Abdominal x-ray done yesterday showed: 1. Mild distention of the small bowel loop with air with a relative paucity of gas in the colon. Findings suggest ileus or low-grade partial bowel obstruction, slightly increased compared to previous exam. 2. Stable position of the NG tube. IMPRESSION: Small bowel obstruction, likely due to underlying adhesions. This was conservatively treated. Now, she is being allowed to clear liquid. PLAN: Continue present medical management as per Surgery. The patient also told me that she has a chronic constipation. Once bowel obstruction is resolved, then she should be put on daily bowel regimen. I have also given her my business card in presence of all other family members. She can follow up with me in the office in a week or two after discharge. I thank Dr. Shine for allowing me to participate in the care of this patient. James Cristina MD SA/SHRUTHI /[id number]
--- NOTE | 2018-09-29 02:03 | Diagnostic Imaging Report ---
Abdomen/KUB INDICATION: ^Small bowel obstruction ^[id number] ^0100 COMPARISON: Abdomen x-ray 09/27/2018. FINDINGS: Portable, supine image obtained at 0106 hours. Medical Devices: Enteric tube has been removed. Stimulator and surgical clips in the left pelvis are stable Bowel: Distended small bowel loop in the lower abdomen to the left of midline measures 3.7 cm in diameter (previously, 3.4 cm). No pneumatosis. No significant amount of air in the large bowel. There is stool in the right colon. Free air: None Calcifications: 2 new calcifications in the right mid abdomen may correspond to medication Organomegaly: None Lung bases: Clear Bones: Stable degenerative changes superimposed on scoliosis. IMPRESSION: Removal of enteric tube. Increasing distention of the small bowel suggestive of progressing partial small bowel obstruction. Signed by: Dr. Roxanne Rosa MD on 09/29/2018 2:00 AM
--- NOTE | 2018-09-29 02:28 | NUR ---
Notified Dr. Glynn of Abd x-ray results (i.e. increasing distention of the small bowel suggestive of progressing partial small bowel obstruction). Informed Dr. Glynn that patient is comfortably sleeping with HOB elevated and has not vomited for a while now. stated just to keep pt NPO and monitor patient.
--- NOTE | 2018-09-29 04:45 | NUR ---
Patient had 2 bouts of vomiting (200ml) and keeps spitting. Patient informed plan is to insert NG tube since vomiting episodes keep happening and as per Dr. Glynn's order.
--- NOTE | 2018-09-29 04:55 | NUR ---
NG tube 14 gambian inserted on left nare. Patient tolerated insertion fine. Awaiting on stat KUB to be done to verify NG tube placement.
[2018-09-29] MEDS: DEXTROSE 5%/0.45% SOD CHL 1,000 ML IV SCH (05:40)
[2018-09-29] MEDS: ONDANSETRON HCL INJ 2MG/ML 2ML 2 MG/ML VIAL IV PRN (05:40)
[2018-09-29 05:46] LABS: PHOSPHORUS 1.5 MG/DL (2.3-4.7)
--- NOTE | 2018-09-29 05:51 | Diagnostic Imaging Report ---
Abdomen/KUB INDICATION: ^to verify NG tube placement ^[id number] ^0529 COMPARISON: Abdomen x-ray 0106 hours. FINDINGS: Portable, supine image obtained at 0519 hours. Medical Devices: Enteric tube is in the left upper quadrant. It cannot be conclusively localized to the stomach. There is a linear radiodensity in the medial left lung base that may represent the tip of the tube. Stimulator and surgical clips in the left pelvis are stable. Bowel: Distended loop of small bowel the left hemiabdomen measures 3.5 cm. No pneumatosis. Little air in the large bowel. Free air: None Calcifications: None over the renal shadows or along the expected course of the ureters. Organomegaly: None Bones: Stable IMPRESSION: Enteric tube tip location is poorly visualized and may be within the lower chest. Recommend repeat imaging with inclusion of the lower chest. No change in small bowel distention suggestive of partial small bowel obstruction. Signed by: Dr. Roxanne Rosa MD on 09/29/2018 5:48 AM
[2018-09-29 06:11] LABS: ANION GAP 10.7 mmol/L (8-16); BLOOD UREA NITROGEN < 5 mg/dL (7-26); CALCIUM 8.9 mg/dL (8.4-10.2); CARBON DIOXIDE 19 mmol/L (22-29); CHLORIDE 105 mmol/L (98-107); CREATININE, SERUM 0.49 mg/dL (0.57-1.11); EST GLOMERULAR FILTRATION RATE > 60 ML/MIN (60-); GLUCOSE 174 mg/dL (74-118); POTASSIUM 3.7 mmol/L (3.5-5.1); SODIUM 131 mmol/L (136-145)
[2018-09-29 06:12] LABS: BUN/CREATININE RATIO 10 (6-25)
--- NOTE | 2018-09-29 06:34 | NUR ---
NOTIFIED DR MICHELLE LOW Mg-1.0, NEW ORDER RECEIVED
[2018-09-29] MEDS ORDERED: MAGNESIUM SULFATE 2GM/50ML 50 ML IV ONE ×2 (06:45→14:00)
[2018-09-29] MEDS: PANTOPRAZOLE 40 MG 10ML VIAL IV SCH (07:35)
[2018-09-29] MEDS: METOCLOPRAMIDE HCL 10 MG/2ML VIAL IV SCH (07:35)
--- NOTE | 2018-09-29 07:52 | NUR ---
aware of KUB results. States "connect patient now to low intermittent suction and repeat KUB"
--- NOTE | 2018-09-29 08:27 | Diagnostic Imaging Report ---
Exam: Abdominal film Clinical History: Small bowel obstruction Comparison: None. DISCUSSION: No air-filled loops of dilated bowel. Enteric tube with tip overlying left upper quadrant. Bladder stimulator. Degenerative disc disease of the lumbar spine. Clips left of midline. IMPRESSION: No dilated air-filled loops of bowel Signed by: Dr. George Garrido M.D. on 09/29/2018 8:24 AM
--- NOTE | 2018-09-29 09:36 | NUR ---
called for clarification on IV magnesium. States "gives second dose of magnesium at noon as ordered"
--- NOTE | 2018-09-29 09:37 | NUR ---
aware of consult. States "We will see patient tomorrow"
--- NOTE | 2018-09-29 09:46 | NUR ---
aware of 0800 KUB results. No new orders
[2018-09-29] MEDS ORDERED: CYANOCOBALAMIN INJ 1,000 MCG/ML VIAL IM ONE (10:00)
[2018-09-29] MEDS ORDERED: POTASSIUM PHOSPHATE 20 MM in SODIUM CHLORIDE 0.9% 250ML 250 ML IV ONE (10:00)
[2018-09-29] MEDS: CEFTRIAXONE SOD 1 GM/NS 50 ML 50 ML IV SCH (10:20)
--- NOTE | 2018-09-29 16:32 | Diagnostic Imaging Report ---
Examination: Single AP view of the chest. COMPARISON: None. INDICATION: PICC line DISCUSSION: Lines/tubes: Left PICC line with tip overlying the SVC. Enteric tube with tip left upper quadrant. Lungs: The lungs are well inflated and clear. No pneumonia or pulmonary edema. Pleura: No pleural effusion or pneumothorax. Heart and mediastinum: The heart and the mediastinum are unremarkable. Bones and soft tissues: No acute bony abnormalities. IMPRESSION: 1. Left PICC line with tip overlying the SVC Signed by: Dr. George Garrido M.D. on 09/29/2018 4:29 PM
[2018-09-29] MEDS: D5NS/KCL 20MEQ 1,000 ML IV SCH (16:50)
--- NOTE | 2018-09-29 18:45 | NUR ---
Resting in bed, daughter at bedside. No s/s of acute distress noted. Report to be given to oncoming nurse.
--- NOTE | 2018-09-29 19:30 | NUR ---
Patient visited in room during nursing rounds. Patient alert and oriented x3. Patient appear sleepy but easily arousable. NG tube in place to left nare and connected to low wall intermittent suction. Daughter at bedside. PICC in place and pt aware will be started on TPN tonight. Condition stable. Call johnson within reach. Will continue to monitor.
[2018-09-29] MEDS: CENTRAL TPN FORMULA 1 BAG IV SCH (20:37)
[2018-09-30] VITALS (8 sets, daily range): BP systolic 150–186; BP diastolic 67–86
--- NOTE | 2018-09-30 00:50 | Progress Note ---
DATE: 09/29/2018 SUBJECTIVE: The patient developed nausea and vomiting after eating food yesterday. She barely had a small bowel movement. She is not passing any flatus. REVIEW OF SYSTEMS: GENERAL: No fever or chills. CVS: No chest pain or palpitations. RESPIRATORY: No cough or expectoration. MEDICATIONS: Potassium chloride, ceftriaxone, pantoprazole, Zofran, hydralazine, clonidine, total parenteral nutrition. PHYSICAL EXAMINATION: VITAL SIGNS: Temperature 98.6, pulse 73, respirations 20, blood pressure 135/66, oxygen saturation 96% on room air. GENERAL: Not in any acute distress, elderly, frail. NG in place, draining bile. HEENT: Anicteric sclerae. ABDOMEN: Soft. Mild lower quadrant tenderness. No rebound, rigidity, or guarding. Bowel sounds hyperactive. LABORATORY DATA: WBC 4.96, hemoglobin 9.8 down from 10.1, hematocrit 29.5, MCV 87.8, platelet count 218. Sodium 131, potassium 3.7, chloride 105, bicarb 19, BUN 5, creatinine 0.49, glucose 174. Abdominal x-ray showed NG in place, bladder stimulator. Degenerative disk disease of the lumbar spine. No air filled loop of dilated bowels. IMPRESSION: Although abdominal x-ray is not showing any evidence of obstructive bowel gas pattern, clinically the patient seems to have recurrent small bowel obstruction. PLAN: Agree to continue NG with tou-ng-hzyhnjlkkppu wall suction. TPN. Monitor clinically. Surgery is also following the patient. James Cristina MD SA/SHRUTHI /[id number]
[2018-09-30] MEDS: D5NS/KCL 20MEQ 1,000 ML IV SCH ×2 (02:39→12:00)
[2018-09-30 05:33] LABS: ANION GAP 8.7 mmol/L (8-16); BLOOD UREA NITROGEN < 5 mg/dL (7-26); CALCIUM 7.5 mg/dL (8.4-10.2); CARBON DIOXIDE 21 mmol/L (22-29); CHLORIDE 109 mmol/L (98-107); CREATININE, SERUM 0.46 mg/dL (0.57-1.11); EST GLOMERULAR FILTRATION RATE > 60 ML/MIN (60-); GLUCOSE 197 mg/dL (74-118); POTASSIUM 3.7 mmol/L (3.5-5.1); SODIUM 135 mmol/L (136-145)
[2018-09-30 05:34] LABS: BUN/CREATININE RATIO 11 (6-25)
--- NOTE | 2018-09-30 07:00 | NUR ---
BEDSIDE SHIFT REPORT ON PT FROM NIGHT RN. PT DENIES NEEDS AT THIS TIME.
[2018-09-30] MEDS: PANTOPRAZOLE 40 MG 10ML VIAL IV SCH (09:13)
--- NOTE | 2018-09-30 09:34 | NUR ---
IMM letter delivered and explained to pt. She verbalized understanding. Signed copy placed in chart. Copy to pt.
[2018-09-30] MEDS: CEFTRIAXONE SOD 1 GM/NS 50 ML 50 ML IV SCH (12:57)
[2018-09-30] MEDS: CLONIDINE HCL 0.2 MG/24 HR 1 EA PATCH TOP SCH (14:45)
--- NOTE | 2018-09-30 17:10 | NUR ---
Follow-up Note RD Recommendation(s) for Physician: - Continue current standard PN @50mL/hr with additional of 25g lipids (M,W,F), provides 948kcal, 180g dextrose, 60g protein, and 1200mL fluids. meeting 95% of est calorie needs and 100% protein needs - Continue with TPN per MD until diet is advanced and intake is >50%. - Check BMP, Phos, Mag daily; Prealbumin, LFT and TG levels weekly Plan of Care: RD following, monitoring for tolerance and adequacy, TPN Nutrition reason for involvement: TPN, follow up RD Assessment 09/30- Pt was discussed during AM rounds. Pt had nausea and vomiting after started on clear liquid diet over the weekend. TPN was started. Possible surgical intervention for recurrent SBO. NGT to wall suction; still draining. Visited pt in the room. Daughter was aware of the purpose of TPN. No GI complains noted today. Will continue to monitor and follow. 09/26- 88yo F, who was admitted for abdominal pain. Pt was discussed during AM rounds. No surgical intervention for SBO. NGT to suction. IVF and IV abx present. Abd X-ray showed large amount of stool in colon; enema has been ordered. RD visited pt for NPO x 5 days. Pt appeared comfortable with no complains of nausea or vomiting. No BM after enema was given. Pt reported hx of chronic constipation. 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 Will continue to monitor and follow. Principal Problems/Diagnoses: SBO PMH: hypertension, hypothyroidism GI: abdomen soft, round, flatus present Skin: no pressure wound noted Labs: (09/30) Na 135 L, BUN <5 L, Creatinine 0.46 L, Glucose 140 180 H, Ca 7.5 L, Phos 2.0 L (09/26) Na 134 L, creatinine 0.53 L, Glucose 58 L, Ca 8.1 L Meds: protonix Ht: 54in Wt: 111.38lb; 108.56lb BMI: 26.9kg/m2 IBW: 70lbs Malnutrition Evaluation (09/26) The patient does not meet criteria for a specified degree of malnutrition at this time. Will re-evaluate at follow-up as appropriate. Energy intake: <50% of estimated energy requirements for >5 days Weight loss: Unknown Fat loss: None Muscle loss: None Supporting Evidence: Fluid accumulation: unable to evaluate Functional Status: no changes Nutrition Prescription (Diet Order): NPO Estimated Nutritional Needs: Calories: 1000 - 1250kcal (20-25kcal/kg/d) Weight used: actual BW Protein: 50 -75g (1-1.5g/kg/d) Weight used: actual BW Diet Adequacy: meeting calorie needs, meeting protein needs Diet Education Needs Assessment: Diet education indicated, but patient not appropriate for education at this time. Nutrition Care Level: high (TPN) Nutrition Diagnosis: Inadequate oral intake related to SBO as evidenced by pt requiring PN as main source of nutrients. Goal: Patient will meet 75-100% of estimated needs by follow up Progress: Goal met. Interventions: Composition, Rate, Route Monitoring/Evaluation: Total energy intake, Total protein intake, Weight change, labs, Formula/Solution Signed: Mamta Huerta MS, RD, LD
[2018-09-30] MEDS: CENTRAL TPN FORMULA 1 BAG IV SCH (20:00)
--- NOTE | 2018-09-30 20:00 | NUR ---
PT IN BED, FAMILY AT BEDSIDE, NG TUBE TO LEFT NARE TO LIWS DRAINGING GREEN BILE, IV INTACT, PICC LINE INTACT WITH TPN RUNNING, CONSENT FOR SURGERY DONE, PT IS NPO, CALL LIGHT IN REACH, NO DISTRESS NOTED, VS STABLE
[2018-10-01] VITALS (9 sets, daily range): BP systolic 141–183; BP diastolic 65–84
--- NOTE | 2018-10-01 | NUR ---
PT AWAKE FOR VS, VS STABLE, NO DISTRESS NOTED
--- NOTE | 2018-10-01 00:27 | Consultation ---
DATE OF CONSULTATION: REASON FOR CONSULTATION: Electrolyte management. HISTORY OF PRESENT ILLNESS: The patient is an 88-year-old female with past medical history of hypertension and hypothyroidism, who was admitted with acute onset of nausea, vomiting, and lower abdominal pain. The patient was found to have a small bowel obstruction. The patient was seen by Surgery and suggested to manage conservatively. The patient had an NG tube pain and was put into low-intermittent suction. The patient eventually did not tolerate any diet and started on TPN. The patient has been having electrolyte imbalance and needed to be replaced IV. Currently, on TPN. PAST MEDICAL HISTORY: Hypertension, hypothyroidism. PAST SURGICAL HISTORY: Umbilical hernia repair, cholecystectomy, small bowel resection secondary to bowel obstruction. FAMILY HISTORY: No history of any kidney disease. SOCIAL HISTORY: No history of smoking, alcohol, or intravenous drug abuse. ALLERGIES: NO KNOWN DRUG ALLERGIES. MEDICATIONS: Currently, the patient is on clonidine patch, ceftriaxone, pantoprazole, hydralazine IV, and Zofran p.r.n. REVIEW OF SYSTEMS: GENERAL: No fatigue, no fever, no chills. HEENT: No headache. No blurry vision. NECK: No dysphagia. CARDIOVASCULAR: No chest pain. No PND. No orthopnea. RESPIRATORY: No shortness of breath . No cough or hemoptysis. GI: No nausea, vomiting, diarrhea, or constipation. No abdominal pain. No hematemesis. No melena. MUSCULOSKELETAL: No ankle swelling. NEUROLOGIC: No numbness or tingling. PHYSICAL EXAMINATION: VITAL SIGNS: Blood pressure 158/74, pulse of 83, respirations 16, temperature 96.9, 99% on room air. GENERAL: The patient is awake and alert, not in apparent distress. HEENT: PERRLA. Extraocular movements intact. NECK: No JVD. HEART: S1 and S2. LUNGS: CLEAR TO AUSCULTATE ABDOMEN: Soft. Bowel sound sluggish. EXTREMITIES: No edema. NEUROLOGIC: No focal deficits. LABORATORY DATA: Sodium 135, potassium 3.7, chloride 99, CO2 of 21, BUN is less than 5, creatinine 0.46, glucose 197, calcium 7.5. Magnesium 2.0, phosphorus is 2.0. CT abdomen and pelvis on admission showed partial small bowel obstruction. ASSESSMENT AND PLAN: 1. Small bowel obstruction. Currently on TPN. Monitor electrolytes and adjust the TPN as needed. Surgery and GI following. 2. Hypertension, reasonably controlled on clonidine patch. Continue with the p.r.n. medications. 3. Discussed with the daughter at bedside. I want to thank, Dr. Shine, for the consult. MD ADRY Irizarry/SHRUTHI /[id number]
--- NOTE | 2018-10-01 06:43 | NUR ---
pt in bed, ng tube draining, tpn infusing, call light in reach, family at bedside, pt is npo, vs stable, no distress noted
--- NOTE | 2018-10-01 07:00 | NUR ---
BEDSIDE SHIFT REPORT ON PT FROM NIGHT RN. PT DENIES NEEDS AT THIS TIME.
[2018-10-01] MEDS: PANTOPRAZOLE 40 MG 10ML VIAL IV SCH (09:48)
[2018-10-01] MEDS ORDERED: DIATRIZOATE MEGL/DIATRIZOA SOD 30 ML BTL PO ONE (11:17)
[2018-10-01] MEDS: CEFTRIAXONE SOD 1 GM/NS 50 ML 50 ML IV SCH (12:48)
[2018-10-01] MEDS ORDERED: BUPIVACAINE 0.25% 30ML SDV INJ ONE (15:49)
--- NOTE | 2018-10-01 16:04 | NUR ---
CASE MANAGEMENT INITIAL ASSESSMENT Delivery Man to bedside to discuss plan of care with patient/family. CM/SW role and care transitions discussed. Anticipated discharge plan discussed along with duration of care. CM/SW discussed patients right to make decisions in care. CM work hours given. Patient lives: PATIENT LIVES IN [address] STORY HOME WITH DAUGHTER IN [facility] Admit/Transfer: ED Hospital/ER visits since last admit: NO POA/Emergency contact: PATIENT DAUGHTER- PIERRE RANDLE [phone] Current/Previous Home Health: NO PCP/Follow-up Care: DR. MOHSEN FREGOSO Current/Previous DME: WALKER, WHEELCHAIR, CANE Medications (referring to index hospitalization or the first time you were in the hospital) a. Were changes made in your medications when you were in the hospital on [date of index hospitalization]? Yes No Not sure Explain: Note: If no or not sure, please skip to question d b. Did you understand the changes? Yes No Explain: c. Were you able to obtain your new medications right away? Yes Non/a SNF only Explain: d. Were you able to take your medications like the doctor wanted you to? Yes No Explain: e. Did the hospital give you an accurate, easy to understand list of medications when you left? Yes No n/a SNF only Explain: Scale of 1-10 how comfortable does patient feel with disease management in outpatient setting: Other Services: NONE AT THIS TIME Employment Status: RETIRED Areas of Concerns: MOBILITY, WEAKNESS Referral Needs: SNF Education Needs: HEALTH AND WELLNESS IMM/RAMIREZ given and signed (if applicable): IMM Goal for discharge: DISCHARGE TO NURSING HOME FACILITY CM left business card at the bedside with contact information. Name and number was also written on the patients whiteboard. Patient verbalized understanding of discussion. CM will follow-up with ongoing discharge and transition of care needs.
--- NOTE | 2018-10-01 16:20 | Diagnostic Imaging Report ---
EXAM: CT ABDOMEN AND PELVIS without IV CONTRAST DATE: 10/01/2018 Time stamp on Exam: 1:15 PM INDICATION: Small bowel obstruction COMPARISON: 09/21/2018 TECHNIQUE: The abdomen and pelvis were scanned using a multidetector helical scanner. Coronal and sagittal reformations were obtained. Routine protocol performed. Low-dose technique was utilized to maintain the lowest dose possible to the patient. IV Contrast: None Oral Contrast: Gastrografin intermixed with water Radiation Dose: Total DLP 297.08 mGy*cm Estimated effective dose: DLP x 0.015 x size factor FINDINGS: LOWER THORAX: Small bilateral pleural effusions; right side greater than left. No consolidation. LIVER: No masses BILIARY: The gallbladder is absent. No ductal dilatation. SPLEEN: No masses with a granuloma in the spleen PANCREAS: No masses ADRENALS: No nodules KIDNEYS: No hydronephrosis. GI TRACT: Continued evidence of small bowel dilatation; not as severe as the previous study. Findings likely secondary to an incomplete small bowel obstruction or resolving small bowel obstruction. NG tube extends into the stomach. Diverticula within the colon. VESSELS: Vascular calcification. PERITONEUM/RETROPERITONEUM: No free air or fluid LYMPH NODES: No lymphadenopathy REPRODUCTIVE ORGANS: Unremarkable BLADDER: Unremarkable SOFT TISSUES: Scattered clips within the abdomen. Pain pump/stimulator in the left gluteal region. Several fat-containing ventral hernias. BONES: No suspicious bone lesions. Degenerative changes with thoracolumbar scoliosis. Old right rib fractures. IMPRESSION: 1. Decrease in the degree of small bowel dilatation compared to the previous study. 2. Interval development of small bilateral pleural effusions. Signed by: Dr. Hema Colby DO on 10/01/2018 4:17 PM
[2018-10-01] MEDS ORDERED: LIDOCAINE HCL 2% LOCAL INJ 5 ML SDV VIAL INJ ONE (17:40)
[2018-10-01] MEDS ORDERED: PROPOFOL IV EMULSION 10 MG/ML 20 ML VIAL ONE (17:40)
[2018-10-01] MEDS ORDERED: ROCURONIUM BROMIDE 10 MG/ML 5ML VIAL ONE (17:40)
[2018-10-01] MEDS ORDERED: SEVOFLURANE INHAL SOLN 250 ML PEN BTL ONE (17:40)
[2018-10-01] MEDS ORDERED: ONDANSETRON HCL INJ 2MG/ML 2ML 2 MG/ML VIAL ONE (17:40)
[2018-10-01] MEDS ORDERED: SUCCINYLCHOLINE 200 MG/10 ML SYR ONE (17:40)
[2018-10-01] MEDS ORDERED: DEXAMETHASONE SOD PHOS INJ 4 MG/ML VIAL ONE (17:40)
[2018-10-01] MEDS ORDERED: SUGAMMADEX SODIUM 200 MG/2 ML VIAL IV ONE (18:40)
[2018-10-01] MEDS ORDERED: FENTANYL CITRATE/PF 100MCG/2 ML INJ ONE (18:40)
--- NOTE | 2018-10-01 20:00 | NUR ---
Received pt from [facility] after s/p exp.laparotomy.aaox3.asessment done.lung [place] clear to auscultation.[place] is in place.ng tube to left nares in low cont.wall suction.o2 2l nc started.pain voiced 02/05.3 trochar sites and midline abd incision dry and intact.Left upper arm double lumen picc line is in place.TPN running 50 ml/hr.iv ns running @ 75 ml /hr.v/s stable.scd applied.family member at bed side.keep monitor the pt.
[2018-10-01] MEDS: CENTRAL TPN FORMULA 1 BAG IV SCH (20:31)
[2018-10-01] MEDS: LACTATED RINGER'S 1,000 ML IV SCH (20:56)
[2018-10-01] MEDS: ONDANSETRON HCL INJ 2MG/ML 2ML 2 MG/ML VIAL IV PRN (20:57)
[2018-10-01] MEDS: MORPHINE SULFATE INJ 4 MG/ML INJ 1ML IV PRN (21:04)
[2018-10-02] VITALS (8 sets, daily range): BP systolic 119–199; BP diastolic 56–83
[2018-10-02] MEDS: HYDRALAZINE HCL 20 MG/ML VIAL IV PRN ×2 (01:26→16:39)
--- NOTE | 2018-10-02 02:59 | Operative Report ---
DATE OF PROCEDURE: 10/01/2018 SURGEON: Nigel Santos MD PREOPERATIVE DIAGNOSIS: Small bowel obstruction. POSTOPERATIVE DIAGNOSIS: Small bowel obstruction. OPERATIVE PROCEDURE: Laparoscopic lysis of adhesion, open dissection of ileal segment. ANESTHESIA: General, Dr. Colon. INDICATIONS FOR SURGERY: The patient is an 88-year-old female with persistent bowel obstruction for more than a week with CT scan showing persistent partial small bowel obstruction. Even though the patient has passed some flatus, the patient continued to have vomiting. Family and the patient had consented for surgery with all attendant risks discussed. PROCEDURE FINDINGS: Severe adhesions with bowel of intestinal loops in the lower abdomen from prior surgery. DESCRIPTION OF PROCEDURE: The patient was brought to the OR, intubated. Abdomen was prepped and draped in the sterile fashion. The left upper quadrant direct port access was carried out and insufflation then began. Under direct vision, we encountered adhesions from small bowel and omentum to the anterior abdominal wall involving the entire anterior abdominal wall from above to below the umbilicus. We then inserted working port in the left side of the abdomen, in the left flank and the left lower quadrant. Using LigaSure instrument, a combination of blunt and sharp dissection was carried out to take down the omental adhesions. As we approached the infraumbilical area, dense adhesions from the small intestine to the abdominal wall was taken down with scissors. The layers of anterior abdominal wall was used as a plane to avoid enterotomies which was preserved. between loops of ileum in the lower abdomen preclude further lysis of adhesions laparoscopically. We proceeded to make a lower midline incision through the previous scar entering the peritoneal cavity. The densely adherent loop of ileum was exteriorized and we proceeded to meticulously separate the loops of dissection. A segment of bowel after lysis of adhesions, which was thinned out requiring a 35-cm resection of ileal segment approximately 40-50 cm from the ileocecal valve. This segment was removed along with its mesentery using the LigaSure instrument. An end-to-end stapled anastomosis was carried out using a CODY stapler and TL-60 instrument. Mesenteric defects also closed with interrupted 2-0 silk stitches. Operative field was then irrigated with copious saline solution. Hemostasis achieved. No other point obstruction noted. The omentum abdomen to the pelvis and the abdomen was closed with a running 0 PDS, interrupted 0 Vicryl with 5 stitches. Skin was closed with leslie. The patient was extubated and transported in a guarded condition to the recovery room. ESTIMATED BLOOD LOSS: 50 mL. MD WANG Saini/SHRUTHI /[id number]
--- NOTE | 2018-10-02 03:00 | NUR ---
RESTED WELL DURING NIGHT.LILLY CATHETER IS DRAINING CLEAR COLORED URINE.STABLE CONDITION.ABD DRESSING IS DRY AND INTACT.
[2018-10-02] MEDS: ONDANSETRON HCL INJ 2MG/ML 2ML 2 MG/ML VIAL IV PRN (04:44)
[2018-10-02] MEDS: MORPHINE SULFATE INJ 4 MG/ML INJ 1ML IV PRN (04:45)
--- NOTE | 2018-10-02 06:50 | NUR ---
Report given to the oncoming rn.walking rounds done.stable condition.
[2018-10-02] MEDS: LACTATED RINGER'S 1,000 ML IV SCH (09:06)
[2018-10-02] MEDS: PANTOPRAZOLE 40 MG 10ML VIAL IV SCH (09:06)
--- NOTE | 2018-10-02 09:07 | NUR ---
MD MICHELLE AND MD STEWART INTO SEE PT, BOTH DISCUSSED POC
--- NOTE | 2018-10-02 12:00 | NUR ---
PHYSICAL THERAPIST REPORTS PT UNABLE TO AMBULATE AT THIS TIME, "WEAK"" AND ELEVATED BP , CURRENTLY 161/74, HR 74
--- NOTE | 2018-10-02 14:07 | NUR ---
VOICES NO NEEDS AT THIS TIME, CALL LIGHT WITHIN REACH
[2018-10-02] MEDS ORDERED: CENTRAL TPN FORMULA 1 BAG IV SCH (20:00)
--- NOTE | 2018-10-02 21:00 | NUR ---
ASSESSMENT DONE.NO PAIN VOICED.LILLY CATHETER DRAINING WELL.LILLY CARE GIVEN.NG TUBE TO LEFT NARES LCWS.TPN INFUSING 50 ML /HR.FAMILY MEMBER AT BEDSIDE.
[2018-10-03] VITALS (7 sets, daily range): BP systolic 144–195; BP diastolic 65–83
[2018-10-03] MEDS: HYDRALAZINE HCL 20 MG/ML VIAL IV PRN (04:08)
[2018-10-03 06:38] LABS: BASOPHILS % 0.2 % (0.0-1.0); EOSINOPHILS # (AUTO) 0.1 (0.0-0.4); EOSINOPHILS % 1.7 % (0.0-6.0); HEMATOCRIT 27.5 % (34.2-44.1); HEMOGLOBIN 8.9 g/dL (12.0-16.0); LYMPHOCYTES # (AUTO) 0.7 (1.0-3.2); LYMPHOCYTES % 8.7 % (18.0-39.1); MEAN CORPUSCULAR HGB CONC 32.4 g/dL (31-35); MEAN CORPUSCULAR VOLUME 89.6 fL (81-99); MONOCYTES # (AUTO) 0.6 (0.2-0.8); MONOCYTES % 7.2 % (4.4-11.3); NEUTROPHILS # (AUTO) 6.8 (2.1-6.9); NEUTROPHILS % 81.7 % (38.7-80.0); PLATELET COUNT 182 x10e3/uL (140-360); RED BLOOD COUNT 3.07 x10e6/uL (3.6-5.1)
--- NOTE | 2018-10-03 06:50 | NUR ---
Report given to the oncoming rn.walking rounds done.stable condition.
[2018-10-03 07:10] LABS: ANION GAP 10.3 mmol/L (8-16); BLOOD UREA NITROGEN 13 mg/dL (7-26); BUN/CREATININE RATIO 30 (6-25); CALCIUM 7.8 mg/dL (8.4-10.2); CARBON DIOXIDE 21 mmol/L (22-29); CHLORIDE 107 mmol/L (98-107); CREATININE, SERUM 0.43 mg/dL (0.57-1.11); EST GLOMERULAR FILTRATION RATE > 60 ML/MIN (60-); GLUCOSE 142 mg/dL (74-118); POTASSIUM 3.3 mmol/L (3.5-5.1); SODIUM 135 mmol/L (136-145)
--- NOTE | 2018-10-03 07:18 | NUR ---
pt alert resp even and unlabored at this time no distress noted, pt call light in reach will cont to monitor. pt able to make needs known. pt has ngt in place, no c/o pain when asked, pt has Terry to gravity, will cont cont to monitor.
[2018-10-03 07:26] LABS: MAGNESIUM 1.5 MG/DL (1.3-2.1); PHOSPHORUS 2.5 MG/DL (2.3-4.7)
[2018-10-03] MEDS ORDERED: MAGNESIUM SULFATE 2GM/50ML IV ONE (08:45)
[2018-10-03] MEDS ORDERED: POTASSIUM CHLORIDE 20MEQ/100ML 100 ML IV SCH (08:45)
--- NOTE | 2018-10-03 08:48 | NUR ---
CHUY SPOKE TO DR. MICHELLE REGARDING WORK/ SCHOOL EXCUSE ORDER. CHUY INFORMED MD THAT PHYSICIANS ARE RESPONSIBLE TO WRITE THEM ON SCRIPTS FOR PATIENT/ PATIENT FAMILY. CASE MANAGEMENT DEPARTMENT IS UNABLE TO SUPPLY THOSE DOCUMENTS. AWARE.
[2018-10-03] MEDS: PANTOPRAZOLE 40 MG 10ML VIAL IV SCH (09:27)
[2018-10-03] MEDS: POTASSIUM CHLORIDE 20MEQ/100ML 100 ML IV SCH ×2 (10:00→13:40)
--- NOTE | 2018-10-03 10:00 | NUR ---
pt has magnesium infusing at this time. pt tolerating well. call light in reach.
--- NOTE | 2018-10-03 12:30 | NUR ---
k+ infusing at this time pt tolerating well, no c/o pain resting comfortably, and talking with family members.
--- NOTE | 2018-10-03 14:20 | NUR ---
k+ started pt resting , no distress noted no c/o pain when asked. call light in reach.
--- NOTE | 2018-10-03 15:47 | NUR ---
PT DAUGHTER SIGNED CHOICE FOR [facility] TO START SNF PROCESS AGAIN. FILED IN CHART AND FAXED CLINICALS.
--- NOTE | 2018-10-03 16:30 | NUR ---
pt sitting in chair at bedside. no distress noted call light in reach.
--- NOTE | 2018-10-03 19:23 | NUR ---
report given to oncoming nurse for continued care.
[2018-10-03] MEDS ORDERED: CENTRAL TPN FORMULA 1 BAG IV SCH (20:00)
[2018-10-04] VITALS (8 sets, daily range): BP systolic 107–179; BP diastolic 63–73
[2018-10-04] MEDS: MORPHINE SULFATE INJ 4 MG/ML INJ 1ML IV PRN (03:10)
--- NOTE | 2018-10-04 07:00 | NUR ---
Bedside rounds complete, patient is in bed, left nare ngt in place and suction on.
[2018-10-04] MEDS: PANTOPRAZOLE 40 MG 10ML VIAL IV SCH (09:00)
--- NOTE | 2018-10-04 09:30 | NUR ---
IMM EXPLAINED, SIGNED BY PT AND ON CHART COPY TO PT IN CARE TRANSITION FOLDER
--- NOTE | 2018-10-04 09:33 | NUR ---
Follow-up Note RD Recommendation(s) for Physician: - Continue current standard PN @50mL/hr with additional of 25g lipids (M,W,F), provides 948kcal, 180g dextrose, 60g protein, and 1200mL fluids. meeting 95% of est calorie needs and 100% protein needs - Continue with TPN per MD until diet is advanced and intake is >50%. - Check BMP, Phos, Mag daily; Prealbumin, LFT and TG levels weekly Plan of Care: RD following, monitoring for tolerance and adequacy, TPN Nutrition reason for involvement: Follow up RD Assessment 10/03- Pt was discussed during AM rounds. Pt was up and walked with PT this AM. NGT still draining a lot of dark fluids. Visited pt in the room. TPN was running at 50mL/hr. Pt denied any nausea or vomiting. No flatus yet but pt was burping. Reviewed labs - Phos and Mg WNL, BG 120 -140, K 3.3 L, Na 135 L. No sign of refeeding syndrome at this time. Will continue to monitor and follow. Please consult as needed. 09/30- Pt was discussed during AM rounds. Pt had nausea and vomiting after started on clear liquid diet over the weekend. TPN was started. Possible surgical intervention for recurrent SBO. NGT to wall suction; still draining. Visited pt in the room. Daughter was aware of the purpose of TPN. No GI complains noted today. Will continue to monitor and follow. 09/26- 88yo F, who was admitted for abdominal pain. Pt was discussed during AM rounds. No surgical intervention for SBO. NGT to suction. IVF and IV abx present. Abd X-ray showed large amount of stool in colon; enema has been ordered. RD visited pt for NPO x 5 days. Pt appeared comfortable with no complains of nausea or vomiting. No BM after enema was given. Pt reported hx of chronic constipation. 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 Principal Problems/Diagnoses: SBO PMH: hypertension, hypothyroidism GI: abdomen soft, round, flatus absent Skin: no pressure wound noted Labs: (10/03) BG 120 -140, K 3.3 L, Na 135 L, creatinine 0.43 L, Ca 7.8 L (09/30) Na 135 L, BUN <5 L, Creatinine 0.46 L, Glucose 140 180 H, Ca 7.5 L, Phos 2.0 L (09/26) Na 134 L, creatinine 0.53 L, Glucose 58 L, Ca 8.1 L Meds: protonix Ht: 54in Wt: 111.38lb; 108.56lb; 104lb BMI: 26.9kg/m2 IBW: 70lbs Malnutrition Evaluation (09/26) The patient does not meet criteria for a specified degree of malnutrition at this time. Will re-evaluate at follow-up as appropriate. Energy intake: <50% of estimated energy requirements for >5 days Weight loss: Unknown Fat loss: None Muscle loss: None Supporting Evidence: Fluid accumulation: unable to evaluate Functional Status: no changes Nutrition Prescription (Diet Order): NPO Estimated Nutritional Needs: Calories: 1000 - 1250kcal (20-25kcal/kg/d) Weight used: actual BW Protein: 50 -75g (1-1.5g/kg/d) Weight used: actual BW Diet Adequacy: meeting calorie needs, meeting protein needs Diet Education Needs Assessment: Diet education indicated, but patient not appropriate for education at this time. Nutrition Care Level: mod (TPN) Nutrition Diagnosis: Inadequate oral intake related to SBO as evidenced by pt requiring PN as main source of nutrients. Goal: Patient will meet 75-100% of estimated needs by follow up Progress: Goal met. Interventions: Composition, Rate, Route Monitoring/Evaluation: Total energy intake, Total protein intake, Weight change, labs, Formula/Solution Signed: Mamta Huerta, MS, RD, LD
--- NOTE | 2018-10-04 10:00 | NUR ---
PT place patient in the chair at the bedside and clamped NGT.
--- NOTE | 2018-10-04 12:00 | NUR ---
Pt able to tolerate 2 hours in the chair, placed back in bed and kept NGT clamped.
--- NOTE | 2018-10-04 14:00 | NUR ---
Flushed NGT with 60 cc NS and placed back on suction. No return of flush at this time.
[2018-10-04] MEDS ORDERED: BISACODYL 10 MG SUPP PR ONE (15:00)
--- NOTE | 2018-10-04 16:00 | NUR ---
Patient febrile, Dr. Santos aware, tylenol sup ordered and bisacodyl ordered. Hypo active bowel sounds continue with no flatus.
[2018-10-04] MEDS: ACETAMINOPHEN 650 MG SUPP PR PRN (16:26)
--- NOTE | 2018-10-04 17:30 | NUR ---
The patient was given 650 tylenol SD and is now at 99.4 temp.
--- NOTE | 2018-10-04 19:15 | NUR ---
Bedside rounds complete with assistant shift supervisor.
[2018-10-04] MEDS: CENTRAL TPN FORMULA 1 BAG IV SCH (19:30)
[2018-10-05] VITALS (7 sets, daily range): BP systolic 140–159; BP diastolic 64–70
[2018-10-05 06:37] LABS: BASOPHILS % 0.2 % (0.0-1.0); EOSINOPHILS % 0.6 % (0.0-6.0); HEMATOCRIT 25.5 % (34.2-44.1); HEMOGLOBIN 8.4 g/dL (12.0-16.0); LYMPHOCYTES # (AUTO) 0.4 (1.0-3.2); LYMPHOCYTES % 8.9 % (18.0-39.1); MEAN CORPUSCULAR HEMOGLOBIN 29.4 pg (28-32); MEAN CORPUSCULAR HGB CONC 32.9 g/dL (31-35); MEAN CORPUSCULAR VOLUME 89.2 fL (81-99); MONOCYTES # (AUTO) 0.4 (0.2-0.8); MONOCYTES % 7.8 % (4.4-11.3); NEUTROPHILS # (AUTO) 3.9 (2.1-6.9); NEUTROPHILS % 81.9 % (38.7-80.0); PLATELET COUNT 180 x10e3/uL (140-360); RED BLOOD COUNT 2.86 x10e6/uL (3.6-5.1); RED CELL DISTRIBUTION WIDTH 14.7 % (11.7-14.4)
[2018-10-05 07:03] LABS: ANION GAP 9.5 mmol/L (8-16); BLOOD UREA NITROGEN 14 mg/dL (7-26); BUN/CREATININE RATIO 31 (6-25); CALCIUM 8.1 mg/dL (8.4-10.2); CARBON DIOXIDE 23 mmol/L (22-29); CHLORIDE 103 mmol/L (98-107); CREATININE, SERUM 0.45 mg/dL (0.57-1.11); EST GLOMERULAR FILTRATION RATE > 60 ML/MIN (60-); GLUCOSE 142 mg/dL (74-118); POTASSIUM 3.5 mmol/L (3.5-5.1); SODIUM 132 mmol/L (136-145)
[2018-10-05 07:15] LABS: MAGNESIUM 1.7 MG/DL (1.3-2.1); PHOSPHORUS 3.1 MG/DL (2.3-4.7)
[2018-10-05] MEDS: PANTOPRAZOLE 40 MG 10ML VIAL IV SCH (08:53)
[2018-10-05] MEDS: ACETAMINOPHEN 650 MG SUPP PR PRN ×2 (08:53→23:45)
[2018-10-05] MEDS ORDERED: POTASSIUM CHLORIDE 20MEQ/100ML 100 ML IV ONE (09:34)
[2018-10-05] MEDS ORDERED: SODIUM CHLORIDE 0.9% 500ML 500 ML ONE (10:49)
--- NOTE | 2018-10-05 13:40 | NUR ---
SPOKE WITH FACILITY, THEY ARE UNABLE TO ACCEPT PATIENT ON NG TUBE OR TPN, NOT A CANDIDATE FOR SNF UNTIL THESE ITEMS ARE DISCONTINUED.
--- NOTE | 2018-10-05 15:18 | NUR ---
SPOKE WITH MD STEWART REGARDING PT C/O PAIN TO THROAT. ORDERS TO REMOVE NG TUBE GIVEN
--- NOTE | 2018-10-05 15:35 | NUR ---
REMOVED NG TUBE AT THIS TIME. PT TOLERATED REMOVAL WELL. WILL CONTINUE TO MONITOR
[2018-10-05] MEDS: CENTRAL TPN FORMULA 1 BAG IV SCH (20:55)
[2018-10-05] MEDS: GABAPENTIN 300 MG CAP PO SCH (20:57)
[2018-10-06] VITALS (7 sets, daily range): BP systolic 102–146; BP diastolic 54–65
[2018-10-06 06:27] LABS: BASOPHILS % 0.3 % (0.0-1.0); EOSINOPHILS # (AUTO) 0.1 (0.0-0.4); EOSINOPHILS % 1.8 % (0.0-6.0); HEMATOCRIT 25.8 % (34.2-44.1); HEMOGLOBIN 8.2 g/dL (12.0-16.0); LYMPHOCYTES # (AUTO) 0.4 (1.0-3.2); LYMPHOCYTES % 9.1 % (18.0-39.1); MEAN CORPUSCULAR HEMOGLOBIN 28.9 pg (28-32); MEAN CORPUSCULAR HGB CONC 31.8 g/dL (31-35); MEAN CORPUSCULAR VOLUME 90.8 fL (81-99); MONOCYTES # (AUTO) 0.3 (0.2-0.8); NEUTROPHILS # (AUTO) 3.1 (2.1-6.9); NEUTROPHILS % 81.3 % (38.7-80.0); PLATELET COUNT 178 x10e3/uL (140-360); RED BLOOD COUNT 2.84 x10e6/uL (3.6-5.1); RED CELL DISTRIBUTION WIDTH 14.7 % (11.7-14.4)
[2018-10-06 07:01] LABS: ANION GAP 8.7 mmol/L (8-16); BLOOD UREA NITROGEN 16 mg/dL (7-26); BUN/CREATININE RATIO 36 (6-25); CALCIUM 8.2 mg/dL (8.4-10.2); CARBON DIOXIDE 22 mmol/L (22-29); CHLORIDE 106 mmol/L (98-107); CREATININE, SERUM 0.44 mg/dL (0.57-1.11); EST GLOMERULAR FILTRATION RATE > 60 ML/MIN (60-); GLUCOSE 138 mg/dL (74-118); POTASSIUM 3.7 mmol/L (3.5-5.1); SODIUM 133 mmol/L (136-145)
[2018-10-06 07:12] LABS: PHOSPHORUS 3.4 MG/DL (2.3-4.7)
[2018-10-06 07:43] LABS: EOSINOPHILS % (MANUAL) 1 % (0-7); LYMPHOCYTES % (MANUAL) 6 % (19-48); MONOCYTES % (MANUAL) 4 % (3.4-9.0); NEUTROPHILS % (MANUAL) 89 % (40-74); PLATELET ESTIMATE ADEQUATE; PLATELET MORPHOLOGY COMMENT NORMAL; RBC MORPHOLOGY COMMENT NORMAL
--- NOTE | 2018-10-06 08:20 | NUR ---
PT RESTING IN BED WITH C/O OF LEFT KNEE PAIN. PT STATES THIS PAIN IS CHRONIC, COMES AND GOES AT HOME. MD IGGY PASCUAL ORDER FOR PO TYLENOL TO HELP WITH PAIN MANAGEMENT. PT AWARE OF OTHER PAIN SUBSTITUTES ON EMAR THAT INCLUDE MORPHINE. PT STATES TYLENOL IS FINE. WILL GIVE DOSAGE ORDERED BY MD. PT IS NOW ON CLEAR LIQUID DIET TOLERATING WELL. BM ON DIAPER WITH LOOSE BOWEL, CHANGED AND CLEANED, AND REPOSITIONED. PT HAS IV ACCESS THAT INCLUDE A RIGHT FA 22 SL PATENT AND A LEFT UPPER PICC LINE WITH TPN NOW TAPERED TO 25CC.HR PER MD MEIER ORDERS. WILL DC AFTER BAG COMPLETE. PT VERBALIZED PLAN OF CARE TODAY. SED REMAIN ON FOR DVT PROPHYLAXIS. WILL CONTINUE TO CARE FOR PT AT THIS TIME, BED WHEELS LOCKED,CALL LIGHT IS WITHIN EASY REACH, INSTRUCTED TO CALL FOR ASSISTANCE IF NEEDED. FAMILY REMAINS AT BEDSIDE
[2018-10-06] MEDS: ACETAMINOPHEN 325 MG TAB PO PRN ×2 (08:43→18:16)
[2018-10-06] MEDS: PANTOPRAZOLE 40 MG 10ML VIAL IV SCH (08:43)
--- NOTE | 2018-10-06 10:41 | NUR ---
VIJAYA DC, PT DUE TO VOID ON DIAPER
--- NOTE | 2018-10-06 14:25 | NUR ---
Visit made by the Spiritual Care Department Pastoral Visitor, Eduin Becker. Pt sleeping soundly and no family present. Pastoral Visitor left a card describing availability of cutter and edge trimmer and instructions on how to contact a cutter and edge trimmer. KAREN HAQUE National Sales Associate Spiritual Care Department O: [phone] Pager: [phone] ([phone] calling from)
--- NOTE | 2018-10-06 14:31 | NUR ---
PT TOLERATED CLEAR BREAKFAST AND CLEAR LUNCH . PT FEELS OK WITH ADVANCING DIET TO FULL AT THIS TIME
--- NOTE | 2018-10-06 16:00 | NUR ---
pt voided into diaper after montilla removal
--- NOTE | 2018-10-06 17:49 | Progress Note ---
DATE: Medicine Progress Note I am covering for Dr. Shine, who is the primary on this case. SUBJECTIVE: The patient apparently had status post small bowel obstruction with status post partial resection with status post lysis of adhesions that was performed on 10/01/2018. The patient is currently doing well. She is on clear liquid diet. She was on TPN, now discontinued today. She was also found to be hyponatremic, being managed by Nephrology. PHYSICAL EXAMINATION: VITAL SIGNS: Temperature 97.5, pulse 66, respiratory rate is 18, blood pressure is 118/57, pulse ox is 96% on room air. GENERAL: No acute distress, alert and oriented x3. Cooperative on examination. HEENT: Head is normocephalic, atraumatic. Eyes, pupils equal, round, reactive to light bilaterally. Extraocular movements intact bilaterally. NECK: Supple. Good range of motion throughout. No evidence of erythema or exudates in the posterior pharynx. Has poor dentition. PULMONARY: Clear to auscultation bilaterally. No wheezing, no rales, no rhonchi, no crackles appreciated. CARDIOVASCULAR: Positive S1 and S2. No murmurs, rubs, or gallops appreciated. GI: Abdomen was soft, nondistended, and nontender to palpation. Bowel sounds are present. MUSCULOSKELETAL: Strength is 5/5 throughout. No weakness appreciated. NEUROLOGIC: Cranial nerves II through XII are grossly intact. . PSYCHIATRIC: Normal affect and mood. EXTREMITIES: No edema. Good range of motion throughout. LABORATORY DATA: Lab findings show white count 3.8, hemoglobin 8.2, hematocrit is 26, platelets of 178. Chemistry; sodium 133, potassium 3.7, chloride 106, bicarb 22, anion gap of 8.7, BUN is 16, creatinine is 0.44, glucose 138, calcium 8.2, magnesium 2. Phosphorus 3.4. MICROBIOLOGY: None. IMAGING STUDIES: None. IMPRESSION: 1. Status post small bowel obstruction with partial resection, status post lysis of adhesions performed on 10/01/2018. 2. Moderate protein calorie malnutrition, now on clear liquid diet. 3. Hyponatremia. 4. Hypertension. PLAN: At this time, she is now on clear liquid diet. TPN has been discontinued. General Surgery is following closely. Nephrology was consulted for underlying hyponatremia and TPN management. She is currently doing very well. The overall plan of care is for the patient to go to a long term facility. We are going to encourage PT/OT and increase activity. Continue with same plan of care. Repeat labs in the morning. MD SABRINA Goss/SHRUTHI /[id number]
--- NOTE | 2018-10-06 18:26 | NUR ---
spoke with md braun regarding frequent fevers and pt c/o burning when urinating new orders to straight cath pt for urine received and initiation of iv antibiotics orders received
[2018-10-06 19:09] LABS: CLARITY,URINE CLOUDY (CLEAR); COLOR,URINE YELLOW (YELLOW); KETONES,URINE NEGATIVE (NEGATIVE); LEUKOCYTE ESTERASE ,URINE TRACE (NEGATIVE); NITRITE,URINE NEGATIVE (NEGATIVE); PROTEIN,URINE DIPSTICK TRACE (NEGATIVE)
[2018-10-06 19:10] LABS: BACTERIA,URINE MANY /HPF; BILIRUBIN,URINE NEGATIVE (NEGATIVE); EPITHELIAL CELLS,URINE MODERATE /LPF; URINE UROBILINOGEN 0.2 mg/dL (0.2 - 1); YEAST,URINE MANY
[2018-10-06] MEDS: CEFTRIAXONE SOD 1 GM/NS 50 ML 50 ML IV SCH (22:50)
[2018-10-06] MEDS: GABAPENTIN 300 MG CAP PO SCH (22:50)
[2018-10-07] VITALS (7 sets, daily range): BP systolic 91–167; BP diastolic 46–69
[2018-10-07] MEDS: ACETAMINOPHEN 325 MG TAB PO PRN ×2 (00:30→10:34)
[2018-10-07 07:38] LABS: BASOPHILS % 0.3 % (0.0-1.0); EOSINOPHILS % 1.2 % (0.0-6.0); HEMATOCRIT 26.4 % (34.2-44.1); HEMOGLOBIN 8.4 g/dL (12.0-16.0); LYMPHOCYTES # (AUTO) 0.5 (1.0-3.2); LYMPHOCYTES % 13.1 % (18.0-39.1); MEAN CORPUSCULAR HEMOGLOBIN 28.8 pg (28-32); MEAN CORPUSCULAR HGB CONC 31.8 g/dL (31-35); MEAN CORPUSCULAR VOLUME 90.4 fL (81-99); MONOCYTES # (AUTO) 0.3 (0.2-0.8); MONOCYTES % 7.9 % (4.4-11.3); NEUTROPHILS # (AUTO) 2.6 (2.1-6.9); NEUTROPHILS % 76.9 % (38.7-80.0); PLATELET COUNT 196 x10e3/uL (140-360); RED BLOOD COUNT 2.92 x10e6/uL (3.6-5.1); RED CELL DISTRIBUTION WIDTH 14.6 % (11.7-14.4)
[2018-10-07 07:38] LABS: ANION GAP 9.7 mmol/L (8-16); BLOOD UREA NITROGEN 16 mg/dL (7-26); BUN/CREATININE RATIO 34 (6-25); CALCIUM 8.1 mg/dL (8.4-10.2); CARBON DIOXIDE 21 mmol/L (22-29); CHLORIDE 106 mmol/L (98-107); CREATININE, SERUM 0.47 mg/dL (0.57-1.11); EST GLOMERULAR FILTRATION RATE > 60 ML/MIN (60-); GLUCOSE 107 mg/dL (74-118); MAGNESIUM 1.6 MG/DL (1.3-2.1); POTASSIUM 3.7 mmol/L (3.5-5.1); SODIUM 133 mmol/L (136-145)
[2018-10-07] MEDS: PANTOPRAZOLE 40 MG 10ML VIAL IV SCH (09:42)
[2018-10-07] MEDS: CLONIDINE HCL 0.2 MG/24 HR 1 EA PATCH TOP SCH (14:34)
--- NOTE | 2018-10-07 16:09 | Progress Note ---
DATE: 10/07/2018 SUBJECTIVE: The patient is doing much better today with no other issues. Her diet has been advanced to clear liquids. Family has decided to change to assisted facility placement. We will notify Case Management. PHYSICAL EXAMINATION: VITAL SIGNS: Temperature 96.6, pulse 66, respiratory rate 16, blood pressure right now is 91/46, but it was much higher earlier in the day. She is 99% on room air. GENERAL: No acute distress, alert and oriented x3. Cooperative on examination. HEENT. Head is normocephalic, atraumatic. Eyes, pupils equal, round, reactive to light bilaterally. Extraocular movements intact bilaterally. NECK: Supple. Good range of motion throughout. No evidence of erythema or exudates in the posterior pharynx. Has poor dentition. PULMONARY: Clear to auscultation bilaterally. No wheezing, rales, or rhonchi, no crackles appreciated. CARDIOVASCULAR: Positive S1 and S2. No murmurs, rubs, or gallops appreciated. ABDOMEN: Soft, nondistended, and nontender to palpation. Bowel sounds are present. MUSCULOSKELETAL: Strength is 5/5 throughout. No evidence of any muscle deficits on examination. No weakness appreciated. NEUROLOGIC: Cranial nerves II through XII grossly intact. SKIN: Intact. Warm to touch. Good cap refill. PSYCHIATRIC: Normal affect and mood. EXTREMITIES: No edema. Good range of motion throughout. LABORATORY DATA: Lab findings show white count of 3.4, hemoglobin 8.4, hematocrit 26, platelets of 196. Chemistry; sodium 133, potassium 3.7, chloride 103, bicarb 29, anion gap of 9.7, creatinine is , glucose is 107. IMPRESSION: 1. Status post small bowel obstruction with partial resection, status post lysis of adhesions performed on 10/01/2018. 2. Moderate protein calorie malnutrition, now on clear liquid diet. 3. Hyponatremia, resolved. 4. Hypertension. PLAN: At this time her diet has been advanced to clear liquids. TPN has been discontinued. Continue with symptomatic care. PT and OT daily. Pain control. Family change to assisted facility and once we get their final decision, the patient will be discharged to that facility. She is otherwise doing well. Continue follow with the consultants. MD SABRINA Goss/SHRUTHI /[id number]
--- NOTE | 2018-10-07 17:53 | NUR ---
IMM EXPLAINED AND SIGNED BY DAUGHTER AND PLACED IN CHART COPY TO PT IN CARE TRANSITION FOLDER
--- NOTE | 2018-10-07 19:18 | NUR ---
BEDSIDE SHIFT REPORT PERFORMED WITH Dc UMANZOR RN. RECEIVED PT (L) SIDE LAYING IN BED, AAOX3, RR EVEN AND NON-LABORED, ON RA. NO S/SX OF DISTRESS NOTED. DRESSING TO ANTERIOR ABD NOTED TO BE CDI. LEFT PT (L) SIDE LAYING IN BED, BED IN LOW LOCKED POSITION, SIDE RAILS UPX2, CALL LIGHT AND PHONE WITHIN REACH.
[2018-10-07] MEDS: GABAPENTIN 300 MG CAP PO SCH (20:32)
[2018-10-07] MEDS: CEFTRIAXONE SOD 1 GM/NS 50 ML 50 ML IV SCH (20:32)
[2018-10-08] VITALS (8 sets, daily range): BP systolic 101–137; BP diastolic 51–62
--- NOTE | 2018-10-08 04:58 | NUR ---
PERFORMED STERILE DRESSING CHANGE TO (L) UPPER ARM PICC. FLUSHED BOTH LUMENS WITH 10ML OF NS. BLOOD DRAWN FROM RED LUMEN. BOTH IV CONNECTORS CHANGED AT THIS TIME AND SWABCAPS APPLIED.
--- NOTE | 2018-10-08 05:09 | NUR ---
PT HAD REQUESTED BED BATH AT 0500. AT 0500 PT REFUSING BED BATH.
[2018-10-08 05:22] LABS: ANION GAP 8.4 mmol/L (8-16); BLOOD UREA NITROGEN 15 mg/dL (7-26); BUN/CREATININE RATIO 31 (6-25); CALCIUM 7.5 mg/dL (8.4-10.2); CARBON DIOXIDE 22 mmol/L (22-29); CHLORIDE 105 mmol/L (98-107); CREATININE, SERUM 0.48 mg/dL (0.57-1.11); EST GLOMERULAR FILTRATION RATE > 60 ML/MIN (60-); GLUCOSE 78 mg/dL (74-118); POTASSIUM 3.4 mmol/L (3.5-5.1); SODIUM 132 mmol/L (136-145)
[2018-10-08] MEDS: ACETAMINOPHEN 325 MG TAB PO PRN ×3 (06:14→22:01)
[2018-10-08] MEDS: PANTOPRAZOLE 40 MG 10ML VIAL IV SCH (09:17)
--- NOTE | 2018-10-08 11:01 | NUR ---
CM CALLED [facility] FOR UPDATE ON INSURANCE AUTH. CLINICAL SENT BY [facility]I [facility] ON 10/07. PENDING AUTH FOR TRANSFER. PATIENT NO LONGER WITH NGT AND TPN. [facility] Address: [address], [place] [address] INTAKE TO RETURN CALL. CM TO FOLLOW UP
[2018-10-08] MEDS ORDERED: POTASSIUM CHLORIDE 20 MEQ TAB CR PO ONE (12:00)
--- NOTE | 2018-10-08 13:04 | NUR ---
PIERRE RANDLE- PATIENT VANDANA (DAUGHTER) REQUESTS TO BE NOTIFIED PRIOR TO TRANSFER SO SHE CAN PACK UP HER MOTHERS BELONGINGS. BEDSIDE RN NOTIFIED
--- NOTE | 2018-10-08 13:05 | NUR ---
CLINICAL SENT TO [facility] FOR AUTH. PENDING INSURANCE AUTH FOR TRANSFER. [facility]: FAX: [phone]
[2018-10-08] MEDS: ONDANSETRON HCL INJ 2MG/ML 2ML 2 MG/ML VIAL IV PRN (13:28)
--- NOTE | 2018-10-08 16:25 | NUR ---
UPDATED PT/ OT NOTES SENT TO [place] (INTAKE) WITH [facility]: [facility]: FAX: [phone]
--- NOTE | 2018-10-08 16:39 | NUR ---
Follow-up Note RD Recommendation(s) for Physician: -Continue GI soft diet as medically appropriate -Consider Ensure Compact TID if PO <50% in the next 3 days Plan of Care: RD following, monitoring for tolerance and adequacy Nutrition reason for involvement: Follow up RD Assessment 10/08 - Pt was discussed during AM rounds. NGT and TPN were discontinued. GI soft diet has been ordered. Visited pt in the room. Pt tolerated diet well with small appetite. Medication was given for her nausea. No vomiting episode noted. LBM 3. No complains of abdominal pain at this time. Pt wears denture and family wants her foods to be chopped. No swallowing difficulty noted. Will continue to monitor and follow. 10/03- Pt was discussed during AM rounds. Pt was up and walked with PT this AM. NGT still draining a lot of dark fluids. Visited pt in the room. TPN was running at 50mL/hr. Pt denied any nausea or vomiting. No flatus yet but pt was burping. Reviewed labs - Phos and Mg WNL, BG 120 -140, K 3.3 L, Na 135 L. No sign of refeeding syndrome at this time. Will continue to monitor and follow. Please consult as needed. 09/30- Pt was discussed during AM rounds. Pt had nausea and vomiting after started on clear liquid diet over the weekend. TPN was started. Possible surgical intervention for recurrent SBO. NGT to wall suction; still draining. Visited pt in the room. Daughter was aware of the purpose of TPN. No GI complains noted today. Will continue to monitor and follow. 09/26- 88yo F, who was admitted for abdominal pain. Pt was discussed during AM rounds. No surgical intervention for SBO. NGT to suction. IVF and IV abx present. Abd X-ray showed large amount of stool in colon; enema has been ordered. RD visited pt for NPO x 5 days. Pt appeared comfortable with no complains of nausea or vomiting. No BM after enema was given. Pt reported hx of chronic constipation. 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 Principal Problems/Diagnoses: SBO PMH: hypertension, hypothyroidism GI: abdomen soft, flat, LBM 312 Skin: no pressure wound noted Labs: (10/08) Na 132 L, K 3.4 L, creatinine 0.48 L, Ca 7.5 L (10/03) BG 120 -140, K 3.3 L, Na 135 L, creatinine 0.43 L, Ca 7.8 L (09/30) Na 135 L, BUN <5 L, Creatinine 0.46 L, Glucose 140 180 H, Ca 7.5 L, Phos 2.0 L (09/26) Na 134 L, creatinine 0.53 L, Glucose 58 L, Ca 8.1 L Meds: Zofran, protonix Ht: 54in Wt: 111.38lb; 108.56lb; 104lb; 104lb BMI: 26.9kg/m2 IBW: 70lbs Malnutrition Evaluation (09/26) The patient does not meet criteria for a specified degree of malnutrition at this time. Will re-evaluate at follow-up as appropriate. Energy intake: <50% of estimated energy requirements for >5 days Weight loss: Unknown Fat loss: None Muscle loss: None Supporting Evidence: Fluid accumulation: unable to evaluate Functional Status: no changes Nutrition Prescription (Diet Order): GI soft Estimated Nutritional Needs: Calories: 1000 - 1250kcal (20-25kcal/kg/d) Weight used: actual BW Protein: 50 -75g (1-1.5g/kg/d) Weight used: actual BW Diet Adequacy: meeting calorie needs, meeting protein needs Diet Education Needs Assessment: Diet education indicated, but patient not appropriate for education at this time. Nutrition Care Level: low Nutrition Diagnosis: None at this time. Goal: Patient will meet 75-100% of estimated needs by follow up Progress: Progressing Interventions: Modified diet Monitoring/Evaluation: Total energy intake, Total protein intake, modified diet, Weight change, labs Signed: Mamta Huerta, MS, RD, LD
--- NOTE | 2018-10-08 19:08 | NUR ---
BEDSIDE SHIFT REPORT PERFORMED WITH Dc UMANZOR RN. RECEIVED PT LAYING FOWLERS IN BED, AAOX3, RR EVEN AND NON-LABORED, ON RA. NO S/SX OF DISTRESS NOTED. LEFT PT LAYING FOWLERS IN BED, BED IN LOW LOCKED POSITION, SIDE RAILS UPX2, CALL LIGHT AND PHONE WITHIN REACH. FAMILY AT BEDSIDE.
[2018-10-08] MEDS: GABAPENTIN 300 MG CAP PO SCH (20:41)
[2018-10-08] MEDS: CEFTRIAXONE SOD 1 GM/NS 50 ML 50 ML IV SCH (20:41)
[2018-10-09] VITALS (8 sets, daily range): BP systolic 114–159; BP diastolic 55–79
--- NOTE | 2018-10-09 00:38 | Progress Note ---
DATE: 10/08/2018 Medicine Progress Note SUBJECTIVE: The patient is doing much better. She is now advanced from full liquid to likely solid. She was seen by Surgery. PHYSICAL EXAMINATION: VITAL SIGNS: She has a temperature of 98.3, pulse 73, respiratory rate is 18, blood pressure , and pulse 96% on room air. GENERAL: No acute distress, alert and oriented x3, cooperative on examination. HEENT: Head is normocephalic, atraumatic. Eyes, pupils are equal, round, and reactive to light bilaterally. Extraocular muscles are intact bilaterally. No evidence of erythema or exudates in the posterior pharynx. Has poor dentition. NECK: Supple. Good range of motion throughout. PULMONARY: Clear to auscultation bilaterally. No wheezing. No rales. No rhonchi. No crackles appreciated. CARDIOVASCULAR: Positive S1, S2. No murmurs, rubs, or gallops appreciated. ABDOMEN: Soft, nondistended, nontender to palpation. Bowel sounds present. MUSCULOSKELETAL: Strength is 5/5 throughout. NEUROLOGIC: Cranial nerves II through XII are grossly intact. No evidence of any neurological deficits on exam. SKIN: Intact. Warm to touch. Good cap refill. PSYCHIATRIC: Normal affect and mood. EXTREMITIES: No edema. Good range of motion throughout. LAB FINDINGS: CBC stable. Chemistries are stable. IMPRESSION: 1. Status post small bowel obstruction with partial resection, status post lysis of adhesions performed on 10/01/2018. 2. Moderate protein-calorie malnutrition. 3. . 4. Hyponatremia, resolved. 5. Hypertension. PLAN: Diet has been advanced from full liquid diet to regular. . She is doing much better. We are awaiting a shelter facility placement. MD SABRINA Goss/MODL /[id number]
--- NOTE | 2018-10-09 05:00 | NUR ---
BLOOD DRAWN FROM (L) UPPER ARM PICC FROM [place]. AFTER BLOOD DRAW CHANGED IV CONNECTOR AND FLUSHED WITH 20ML OF NS.
[2018-10-09 05:17] LABS: BASOPHILS % 0.3 % (0.0-1.0); EOSINOPHILS # (AUTO) 0.1 (0.0-0.4); EOSINOPHILS % 3.8 % (0.0-6.0); HEMATOCRIT 24.1 % (34.2-44.1); HEMOGLOBIN 7.8 g/dL (12.0-16.0); LYMPHOCYTES # (AUTO) 0.8 (1.0-3.2); MEAN CORPUSCULAR HGB CONC 32.4 g/dL (31-35); MEAN CORPUSCULAR VOLUME 89.6 fL (81-99); MONOCYTES # (AUTO) 0.2 (0.2-0.8); MONOCYTES % 6.5 % (4.4-11.3); NEUTROPHILS # (AUTO) 2.5 (2.1-6.9); NEUTROPHILS % 67.9 % (38.7-80.0); PLATELET COUNT 191 x10e3/uL (140-360); RED BLOOD COUNT 2.69 x10e6/uL (3.6-5.1); RED CELL DISTRIBUTION WIDTH 14.6 % (11.7-14.4)
[2018-10-09 05:33] LABS: ANION GAP 10.7 mmol/L (8-16); BLOOD UREA NITROGEN 16 mg/dL (7-26); BUN/CREATININE RATIO 36 (6-25); CALCIUM 7.6 mg/dL (8.4-10.2); CARBON DIOXIDE 22 mmol/L (22-29); CHLORIDE 105 mmol/L (98-107); CREATININE, SERUM 0.45 mg/dL (0.57-1.11); EST GLOMERULAR FILTRATION RATE > 60 ML/MIN (60-); GLUCOSE 67 mg/dL (74-118); MAGNESIUM 1.4 MG/DL (1.3-2.1); POTASSIUM 3.7 mmol/L (3.5-5.1); SODIUM 134 mmol/L (136-145)
--- NOTE | 2018-10-09 07:20 | NUR ---
Rcvd patient in report this am. Patient is asleep in bed at this time. Family at bedside.
[2018-10-09] MEDS ORDERED: ONDANSETRON HCL 4 MG ORAL DISINTEGRATING TAB PO PRN (08:30)
[2018-10-09] MEDS: PANTOPRAZOLE SOD 40 MG TABEC PO SCH (09:22)
--- NOTE | 2018-10-09 09:44 | NUR ---
IMM EXPLAINED, SIGNED BY PT AND PLACED IN CHART COPY TO PT IN CARE TRANSITION FOLDER
[2018-10-09] MEDS: LINEZOLID 600 MG TAB PO SCH ×2 (09:55→17:49)
[2018-10-09 10:39] LABS: ANISOCYTOSIS SLIGHT; EOSINOPHILS % (MANUAL) 2 % (0-7); HYPOCHROMASIA MODERATE; LYMPHOCYTES % (MANUAL) 24 % (19-48); MONOCYTES % (MANUAL) 5 % (3.4-9.0); MYELOCYTES % (MANUAL) 2 % (0-0); NEUTROPHILS % (MANUAL) 62 % (40-74); RBC MORPHOLOGY COMMENT NORMAL
[2018-10-09 10:40] LABS: PLATELET ESTIMATE ADEQUATE; PLATELET MORPHOLOGY COMMENT NORMAL
[2018-10-09] MEDS ORDERED: CEPHALEXIN 500 MG CAP PO SCH (14:00)
[2018-10-09] MEDS ORDERED: BISACODYL 10 MG SUPP PR PRN (17:00)
[2018-10-09] MEDS: GABAPENTIN 300 MG CAP PO SCH (21:09)
[2018-10-09] MEDS: ACETAMINOPHEN 650 MG SUPP PR PRN (23:00)
[2018-10-10] VITALS: BP 108/53
[2018-10-10] MEDS: ACETAMINOPHEN 325 MG TAB PO PRN (00:14)
--- NOTE | 2018-10-10 00:20 | NUR ---
REPOSITIONED .DULCOLAX SUPPOSITORY ADMINISTERED NO BM.NO RESP.DISTRESS.DRESSING SITE IS DRY AND INTACT.BED LOCKED AND IN LOWEST POSITION.PHONE AND CALL LIGHT WITHIN REACH.INSTRUCTED TO CALL FOR ASSISTANCE NEEDED.
[2018-10-10 04:00] VITALS: BP 104/53
--- NOTE | 2018-10-10 06:58 | NUR ---
REPORT GIVEN TO THE ONCOMING RN.WALKING ROUNDS DONE.STABLE CONDITION.
--- NOTE | 2018-10-10 07:25 | NUR ---
Rcvd patient in report this am. Patient is asleep in bed at this time. No s/s of distress noted. Family at bedside
[2018-10-10 07:47] VITALS: BP 108/49
[2018-10-10] MEDS: PANTOPRAZOLE SOD 40 MG TABEC PO SCH (08:33)
[2018-10-10] MEDS: LINEZOLID 600 MG TAB PO SCH (08:33)
[2018-10-10] MEDS ORDERED: IRON-VITAMIN-MINERAL CAPSULE PO SCH (09:00)
--- NOTE | 2018-10-10 09:21 | NUR ---
Left upper arm PICC removed at this time. Tip intact. Pressure held for 5 minutes and pressure dressing applied. No s/s of distress noted
--- NOTE | 2018-10-10 09:44 | NUR ---
Report called to [facility] and spoke with nurse Shady.
[2018-10-10 09:51] VITALS: BP 108/49
--- NOTE | 2018-10-10 10:09 | NUR ---
Dressing changed to medial abdominal incision. [place] intact and clean and dry.
--- NOTE | 2018-10-10 11:06 | NUR ---
Patient discharged from facility to [facility]. Patient transported via [facility]. No s/s of distress noted. Family at bedside and gathered all of her belongings. Report was called to at the SNF
--- NOTE | 2018-10-11 07:24 | Discharge Summary ---
PRIMARY CARE PHYSICIAN: Dr. Rosalba De La Garza. CONSULTANTS: 1. Dr. Rajesh Llanes. 2. Dr. Adrián Penn. 3. Dr. Nigel Santos. FINAL DIAGNOSES: 1. Small bowel obstruction, failed conservative measures. 2. Status post laparoscopic lysis of adhesions, open dissection of ileal segment, and partial small bowel resection secondary to severe adhesion with bowel of intestinal loop in the lower abdominal from prior surgery. Procedure was done by Dr. Nigel Santos on October 01, 2018. 3. Medical debility, postoperative including prolonged hospitalization. SUMMARY: The patient is a pleasant 88 years old female presented to the hospital with small-bowel obstruction. The patient has multiple surgeries in the past including umbilical hernia repair, cholecystectomy, and an appendectomy along with complete hysterectomy. The patient came in with small-bowel obstruction. NG tube was placed. The patient failed treatment basically with conservative measure. NG tube was subsequently discontinued and then small-bowel obstruction recurred. Repeat KUB showed recurrent small bowel obstruction. TPN placed. The patient subsequently underwent surgical intervention as mentioned above by Dr. Nigel Santos. Postoperatively, the patient had a very slow recovery, but she is doing much better. She has urinary tract infection with VRE, I will start on Zyvox. The patient has taken Zyvox for a total of 7 days. She is doing well now. She is passing gas. Had a bowel movement. She is ambulatory, but limited. The patient had a prolonged hospitalization and debility. The patient will transfer to skilled facility today. She is doing much better. Blood pressure under control. The patient will follow up with the family physician upon this discharge from the skilled facility. The patient to follow up with Dr. Nigel Santos for postoperative care. All medication reconciliation is done. Please review the MAR. The patient discharged today. MD JACQUE Morfin/SHRUTHI /[id number]
== END 2018-10-10 10:40 | DRG 330 ==
LOC: FSED 18:53 → ERHOLD 22:31 → IMCU 23:40 → MED/SURG2 09-24 15:48 → MED/SURG 10-01 19:28
PROVIDERS: ADMIT Internal Medicine; ATTEND Internal Medicine
PROC: 02HV33Z Insertion of Infusion Device into Superior Vena Cava, Percutaneous Approach (ICD-10-PCS; 2018-09-29)
PROC: 0DBB0ZZ Excision of Ileum, Open Approach (ICD-10-PCS; 2018-10-01)
PROC: 0DNU4ZZ Release Omentum, Percutaneous Endoscopic Approach (ICD-10-PCS; principal; 2018-10-01 15:00)
PROC: 0DB80ZZ Excision of Small Intestine, Open Approach (ICD-10-PCS; 2018-10-01 15:00)
DX: K56.51 Intestinal adhesions [bands], with partial obstruction (principal); E87.1 Hypo-osmolality and hyponatremia; N17.9 Acute kidney failure, unspecified; E44.0 Moderate protein-calorie malnutrition; I16.0 Hypertensive urgency; E87.8 Other disorders of electrolyte and fluid balance, not elsewhere classified; E87.6 Hypokalemia; Z68.23 Body mass index [BMI] 23.0-23.9, adult; E03.9 Hypothyroidism, unspecified; Z90.49 Acquired absence of other specified parts of digestive tract; I10 Essential (primary) hypertension; K59.09 Other constipation; Z79.899 Other long term (current) drug therapy
CPT/HCPCS: 36415; 36569; 71045; 74018; 74176; 74177; 74470; 80048; 80053; 81001; 81003; 82607; 82746; 82948; 83540; 83735; 84100; 84443; 84466; 85025; 87086; 87186; 88307; 93005; 96361; 96365; 96366; 97139; 99284; J0360; J0696; J1100; J1650; J1885; J2001; J2270; J2405; J2765; J3420; J3475; J3480; J7030; J7040; J7050; J7121; J7799